=== PATIENT | male | born 1955 | race Caucasian/White ===

== ENCOUNTER 2019-01-22 21:20 | Inpatient (IN) ==
[2019-01-22 21:58] LABS: Basophils # (auto) 0.04 K/uL (0-0.2); Basophils % (auto) 0.3 %; Eosinophils # (auto) 0.08 K/uL (0-0.5); Eosinophils % (auto) 0.6 %; Hematocrit (blood only) 30.2 % (42-52); Hemoglobin 10.1 g/dL (14.0-18.0); Immature Granulocytes # (auto) 0.04 K/uL (0.00-0.02); Immature Granulocytes % (auto) 0.3 %; Lymphocytes % (auto) 18.5 %; Mean Corpuscular Hgb Conc 33.4 g/dL (32-36); Mean Corpuscular Volume 88.6 fL (80-100); Mean Platelet Volume 9.8 fL (7.4-10.4); Monocytes # (auto) 1.05 K/uL (0.11-0.59); Monocytes % (auto) 7.8 %; Neutrophils % (auto) 72.5 %; Platelet Count 360 K/uL (130-400); RDW Coefficient of Variation 13.6 % (11.5-14.5); RDW Standard Deviation 44.3 fL (36.4-46.3); Red Blood Count 3.41 M/uL (4.7-6.1); White Blood Count 13.51 K/uL (4.8-10.8)
--- NOTE | 2019-01-22 22:18 | CT Scan Report ---
ABDOMEN AND PELVIS CT WITHOUT CONTRAST CT DOSE: 2200.63 mGy.cm HISTORY: Acute left-sided flank pain L flank pain inability to urinate ro kidney stones TECHNIQUE: Multiaxial CT images of the abdomen and pelvis were performed without contrast. A dose lo wering technique was utilized adhering to the principles of ALARA. COMPARISON STUDY: None. FINDINGS: Lung bases are generally clear. No pneumatosis or pneumoperitoneum. Imaged inferior cardiac chambers appear unremarkable. Coronary arterial calcifications are noted. Limited evaluation of the solid abdominal organs without the use of IV contrast. Hepatic steatosis. N o focal hepatic mass lesion or intrahepatic biliary ductal dilation identified. Gallbladder, spleen, pancreas and adrenal glands appear unremarkable. Mild bilateral perinephric stranding. Moderate bilat eral hydroureteronephrosis. There are 3 calculi noted about the distal right ureter, largest of which measures up to 6 mm. The distalmost calculus is approximately 1.5 cm proximal to the ureterovesicula r junction. No definite renal calculi identified. 4 mm calculus of the distal left ureter at the leve l of the inferior sacrum on image 376 series 3. 6 mm calculus of the distal left ureter is noted appr oximately 1.5 cm superior to the left ureterovesicular junction. Decompressed urinary bladder. There is a tubular 1.6 cm soft tissue attenuating structure extending from the anterosuperior aspect of uri nary bladder dome to be umbilical distribution suggestive of a urachal remnant. Mild prostamegaly. Calcified plaque of the abdominal aorta without aneurysm. No adenopathy. Nonspecific mildly prominent lymph nodes adjacent to the distal esophagus. No bowel obstruction or bowel wall thickening identifi ed. Terminal ileum and appendix are within normal limits. Soft tissues are within normal limits. Dege nerative changes of the spine, pelvis and hips. IMPRESSION: 1. Moderate bilateral hydroureteronephrosis secondary to obstructing distal ureteral calculi. There a re approximately three calculi of the distal right ureter measuring up to 6 mm with two calculi of th e distal left ureter also measuring up to 6 mm. 2. 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 3. Mild prostamegaly. 4. Hepatic steatosis. 5. No bowel obstruction or bowel wall thickening. Electronically signed by: Nate Oakes M.D. 01/22/2019 10:16 PM
[2019-01-22 22:29] LABS: Alanine Aminotransferase 13 U/L (12-78); Alkaline Phosphatase 68 U/L (45-117); Aspartate Aminotransferase 13 U/L (15-37); BUN Creatinine Ratio 5.2 (10-20); Bilirubin Direct < 0.1 mg/dl (0-0.2); Bilirubin,Total 0.3 mg/dl (0.2-1); Blood Urea Nitrogen 72 mg/dl (7-18); Calcium 8.5 mg/dl (8.5-10.1); Carbon Dioxide 13 mmol/L (21-32); Chloride 106 mmol/L (98-107); Creatinine Clr Calc Pharmacy 9.2 ml/min; Est GFR (Non-African American) 3.4; Glucose 85 mg/dl (70-99); Potassium 5.6 mmol/L (3.5-5.1); Sodium 135 mmol/L (136-145); Total Protein 7.5 gm/dl (6.4-8.2)
[2019-01-22] MEDS ORDERED: CALCIUM GLUCONATE 10% 1,000 MG in SODIUM CHLORIDE 0.9% 50 ML IV STA (22:36)
[2019-01-22] MEDS ORDERED: INSULIN HUMAN REGULAR PER UNIT 10 UNITS in SYRINGE 9.9 ML IV STA (22:36)
[2019-01-22] MEDS ORDERED: DEXTROSE 50% 50 ML SYRINGE IV STA (22:36)
[2019-01-22] MEDS ORDERED: NovoLIN-R INSULIN PER UNIT CHARGE ONE (22:48)
[2019-01-22] MEDS ORDERED: IOTHALAMATE MEGLUMINE II 17.2% 250 ML VIAL ONE (22:54)
[2019-01-22] MEDS ORDERED: MIDAZOLAM HCL 1 MG/ML 2ML VIAL ONE (23:07)
[2019-01-22] MEDS ORDERED: fentaNYL citrate 100 MCG/2 ML VIAL ONE (23:07)
[2019-01-22] MEDS ORDERED: ePHEDrine sulfate 50 MG/ML AMP IV PRN (23:20)
[2019-01-22] MEDS ORDERED: ONDANSETRON INJ 2 MG/ML 2 ML VIAL IV PRN (23:20)
[2019-01-22] MEDS ORDERED: fentaNYL citrate 100 MCG/2 ML VIAL IV PRN (23:20)
[2019-01-22] MEDS ORDERED: ATROPINE SULFATE 0.1 MG/ML 10ML SYR IV PRN (23:20)
--- NOTE | 2019-01-22 23:21 | Urology Consultation ---
Date of Consultation January 22, 2019 Assessment & Plan (1) Acute kidney injury: INDY secondary to bilateral obstructing ureteral calculi Plan for emergent bilateral ureteral stenting Risks, benefits discussed Following stent placement, patient will be at risk for post obstructive diuresis and require close monitoring of his electrolytes with potential fluid replacement and electrolyte replacement as needed Given a creatinine of 13, it may take some time to return to baseline or close to baseline History of Present Illness History of Present Illness 63-year-old gentleman in relatively good health who has had no urine output for 4 days Moderate left-sided flank pain radiating to the groin No prior history of kidney stones No prior history of hematuria Never seen a urologist Upon evaluation in the emergency room, found to have an empty bladder, creatinine of 13, elevated potassium, leukocytosis of 13 CT revealed bilateral distal ureteral calculi with moderate hydronephrosisappropriate appearing renal parenchyma, completely collapsed bladder Allergies Allergy/AdvReac Type Severity Reaction Status Date / Time No Known Allergies Allergy Unverified 01/22/19 21:58 Home Medications Home Medications Medication Instructions Recorded Confirmed Type aspirin 81 mg PO QAM 01/22/19 01/22/19 History atorvastatin 40 mg PO HS 01/22/19 01/22/19 History lisinopril-hydrochlorothiazide 1 tab PO QAM 01/22/19 01/22/19 History metformin 1,000 mg PO BIDM 01/22/19 01/22/19 History metoprolol tartrate 25 mg PO BID 01/22/19 01/22/19 History Patient History Medical History Hypertension No significant past medical history Family History Other No pertinent family history in first degree relatives Social History Preferred Language: Belarusian Feels Safe at Home: Yes Smoking Status: Never smoker Review of Systems Constitutional: + fatigue and + malaise; no fever and no chills Eyes: no worsening vision Ear, Nose, Mouth, Throat: no facial pain and no pain with swallowing Respiratory: no cough and no dyspnea Cardiovascular: no chest pain and no palpitations Gastrointestinal: + abdominal pain and + belching; no nausea and no vomiting Genitourinary: + difficulty urinating and + problem reported Musculoskeletal: + back pain Integumentary: no rash and no urticaria Neurologic: no gait abnormality and no unsteadiness Psychiatric: no behavioral changes and no depression Endocrine: no fatigue Physical Exam Physical Exam: remarkably non-toxic appearing mentating appropriately AAOx3 NAD no resp distress RRR abd soft hypertensive obese mild/moderate edeam no adenopathy Results & Data Vital Signs (Past 12 Hours) Vital Signs Temp Pulse Pulse Resp BP BP Pulse Ox 01/22/19 22:59 74 24 169/75 H 98 01/22/19 21:23 36.8 C 81 16 226/105 H 97 PG Care Time/CCT Total # of Minutes Spent Total Time Spent with Patient: Total time spent is greater than 50% in coordination of care (as documented) at patient's floor/unit and/or counseling patient:
--- NOTE | 2019-01-22 23:24 | Anesthesiology Consultation ---
Date of Service January 22, 2019 Assessment & Plan (1) Encounter for pre-operative examination: Chart Review Chart Review: Acceptable Risk for Surgery and Patient NOT seen in Pre Admission Testing Consults Requested none History Surgery Operation Date: 01/22/19 23:00 Proposed Procedures p Ureteral Stent Insertion/Removal - Branden Blum MD Height/Weight Height: 6 ft 2 in Weight: 170.1 kg Allergies Allergy/AdvReac Type Severity Reaction Status Date / Time No Known Allergies Allergy Unverified 01/22/19 21:58 Medications Home Medications Medication Instructions Recorded Confirmed Last Taken aspirin 81 mg PO QAM 01/22/19 01/22/19 Unknown atorvastatin 40 mg PO HS 01/22/19 01/22/19 Unknown lisinopril-hydrochlorothiazide 1 tab PO QAM 01/22/19 01/22/19 Unknown metformin 1,000 mg PO BIDM 01/22/19 01/22/19 Unknown metoprolol tartrate 25 mg PO BID 01/22/19 01/22/19 Unknown NPO Date Last Intake of Fluids: 01/22/19 Time Last Intake of Fluids: 17:00 Date Last Intake of Solids: 01/22/19 Time Last Intake of Solids: 17:00 Past Medical History Medical History Acute kidney injury Anemia Hypertension Morbid obesity Sleep apnea Exercise / Class Metabolic Activity III < 4 Walking/Shop/Light housework Past Family History Family History Other No pertinent family history in first degree relatives Past Surgical History Surgical History H/O colonoscopy Past Anesthesia History No Hx of Anesthesia Complications and No Family Hx of Anesthesia Complications History of PONV No Hx of PONV and No Hx of Motion Sickness Social History Smoking Status: Never smoker Do You Dip or Chew Tobacco: Yes (1899) Hx Alcohol Use: Yes Hx Substance Use: No Physical Exam Vital Signs Last Vital Signs Temp 36.8 C 01/22/19 21:23 Pulse 74 01/22/19 22:59 Resp 24 01/22/19 22:59 BP 169/75 H 01/22/19 22:59 Pulse Ox 98 01/22/19 22:59 Testing Laboratory Results 01/22/19 21:47 01/22/19 21:47 Electrocardiogram ecg from 2014 showed incomplete RBBB. Cardiac Catheterization 2011 showed mild nonobstructive CAD.
[2019-01-23] MEDS ORDERED: MIDAZOLAM HCL 1 MG/ML 2ML VIAL ONE (00:11)
--- NOTE | 2019-01-23 00:30 | Operative Report ---
Post Operative Report Pre & Post Diagnosis Operation Date: 01/22/19 23:00 Pre-Op Diagnosis: Bilateral Obstructing Ureteral Stones Post-Op Diagnosis: Bilateral Obstructing Ureteral Stones Procedure Operation Date: 01/22/19 23:00 Actual Procedures p Cystoscopy and Bilateral Ureteral Stent Insertion(Bilateral) - Branden Blum MD Surgeon Ramirez Blum MD [employer] Sales Engineer none Estimated Blood Loss 0 Findings Consistent with Post-Op Diagnosis Specimens none Description of Procedure The patient was identified in the preopertive holding area, appropriate informed consents were reviewed and completed and the patient was transferred to the operative suite. Upon arrival, appropriate antibiotics and anesthesia were administered and the patient was placed in dorsal lithotomy position and prepped and draped in sterile fashion. To begin to get the past 22 [place] cystoscope with 30 degree lens, his urethra was unremarkable, no stricture disease. His prostate was modestly enlarged with lateral lobe hypertrophy and a high bladder neck. The full extent of the scope was needed to crest the bladder neck, his bladder was inspected and found to be completely empty without any mucosal abnormalities. I identified the left ureteral orifice and cannulated with a sensor wire and a 5 [place] open-ended catheter. After gentle manipulation of the wire, I had a discharge of bloody urine in the wire advanced the kidney without difficulty. I then placed a 6 [place] by 26 cm double-J ureteral stent on the left, significant curl in the left kidney. Then turned my attention to the right UO, I visualize it and cannulated with a sensor wire and a 5 [place] open-ended catheter. I again had a discharge of bloody urine after bypassing obstructing stones. After advancing the wire to the kidney I placed a 6 [place] by 26 cm double-J ureteral stent seeing a good curl in the kidney and the bladder. I decompressed the bladder and concluded the case. He was taken to the PACU in stable condition. There were no complications. I attest to the content of the Intraoperative Record and any orders documented therein. Any exceptions are noted below.
--- NOTE | 2019-01-23 00:36 | Anesthesiology Progress Note ---
Date of Service January 23, 2019 Anesthesia Post Procedure Vital Signs Vital Signs: Temp Pulse Pulse Resp BP BP Pulse Ox 01/23/19 00:30 36.0 C L 70 16 157/87 H 98 01/23/19 00:20 36.0 C L 69 16 160/87 H 98 01/22/19 22:59 74 24 169/75 H 98 01/22/19 21:23 36.8 C 81 16 226/105 H 97 Pain Intensity Flank: Pain Intensity: 6 Transfer of Care Handoff Completed per policy Notes Mental Status: alert / awake / arousable and participated in evaluation Patient Amnestic to Procedure: Yes Nausea / Vomiting: adequately controlled Pain: adequately controlled Airway Patency, RR, SpO2: stable & adequate BP & HR: stable & adequate Hydration State: stable & adequate Anesthetic Complications: no major complications apparent and Pt Satisfied with anesthetic care
--- NOTE | 2019-01-23 00:36 | History and Physical Report ---
DATE OF ADMISSION: 01/22/2019 CHIEF COMPLAINT: Back pain, unable to void. HISTORY OF PRESENT ILLNESS: This is a 63-year-old male with past medical history significant for type 2 diabetes, hyperlipidemia, testicular hypofunction, obstructive sleep apnea, on continuous positive airway pressure, morbid obesity and tobacco use disorder who presents with back pain and unable to void. The patient states since last 4 days he is having back pain and he has taken ibuprofen a couple of times a day for his back pain. In the last 3 days, he is unable to void. He reported today to his and he was brought in to the Emergency Room and was found to have a creatinine of 13 and potassium of 5.6 and anion gap metabolic acidosis and CAT scan showing bilateral obstructing kidney stones. Urology was notified by Emergency Room and the patient is going to the Operating Room now. The patient denies any headache. No blurred vision. No sore throat. No difficulty swallowing. Appetite is okay. Ambulating okay. Denies any chest pain. No shortness of breath. No cough. No fever. No chills. He is feeling nauseous, but no vomiting. He has some abdominal discomfort from being not able to void and also having some back pain. Denies any recent hematuria or burning micturition. No blood in the stools or black stools. He has some swelling in the legs, but says that is chronic. No rash seen. Currently, he is resting comfortably and hemodynamically stable. ALLERGIES: No known drug allergies. PAST MEDICAL HISTORY: As mentioned above. PAST SURGICAL HISTORY: Colonoscopy with biopsy and knee arthroscopy. MEDICATIONS: The patient is on atorvastatin 40 mg p.o. daily, lisinopril hydrochlorothiazide 20/25 mg p.o. daily, metformin 1000 mg p.o. b.i.d., Lopressor 25 mg p.o. b.i.d., nitroglycerin 0.4 mg sublingual p.r.n. and aspirin 81 mg p.o. daily. FAMILY HISTORY: Significant for father had heart disorder and coronary artery bypass graft at age of 59 and hypertension. Brother had liver cancer. SOCIAL HISTORY: and lives with his . Smokes half pack of tobacco a day. No drug use. No alcohol. REVIEW OF SYMPTOMS: As per HPI. Rest of review of systems negative. PHYSICAL EXAMINATION: GENERAL: The patient is morbidly obese, not in acute distress. VITAL SIGNS: Temperature 36.8, pulse 74, respiratory rate 24, blood pressure 169/75 and oxygen 98% on room air. HEENT: No pallor. No icterus. Pupils are equal, round and reactive to light. NECK: No JVD. No neck masses. No carotid bruits. CARDIOVASCULAR: S1, S2 heard. Regular rate and rhythm. No murmur. No gallop. RESPIRATORY SYSTEM: Normal AP diameter. No accessory muscle use. No wheezing. No crackles. ABDOMEN: Soft. Bowel sounds present. Nontender. No distention. CENTRAL NERVOUS SYSTEM: Cranial nerves II through XII are grossly intact. Nonfocal. EXTREMITIES: Pedal edema present. No erythema seen. LABORATORY DATA: WBC 13.5, hemoglobin 10.1, hematocrit 30.2 and platelets 360. Sodium 135, potassium 5.6, chloride 106, bicarbonate 13, BUN 72, creatinine 13.4, glucose 85, calcium 8.5, total bilirubin 0.3, direct bilirubin less than 0.1, AST 13, ALT 13, alkaline phosphatase [address] of abdomen and pelvis shows moderate bilateral hydronephrosis secondary to obstructing distal ureteral calculi. There are approximately three calculi of the distal right ureter measuring 6 mm with two calculi of the distal left ureteral measuring up to 6 mm, mild prostatomegaly and hyposteatosis. Electrocardiogram, normal sinus rhythm, rate of [address] changes seen. ASSESSMENT AND PLAN: This is a 63-year-old male who presents with back pain, unable to void and found to have obstructing bilateral kidney stones and acute kidney injury with metabolic acidosis. 1. Acute renal failure and chronic kidney disease stage III, baseline creatinine around 1.5, presently creatinine 13.4 mostly secondary to bilateral obstructing kidney stones. Urology was notified by Emergency Room and he is going to the Operating Room now. We will closely monitor his laboratories. Nephrology consulted. 2. Metabolic acidosis from above. We will place on bicarbonate drip D5 with 3 amps of bicarbonate at 100 mL per hour. Follow the laboratories. Appreciate Nephrology input. 3. Hyperkalemia with potassium of 5.6. No electrocardiogram changes. On bicarbonate drip. We will follow the laboratories. 4. Hypertension. We will hold lisinopril hydrochlorothiazide as the patient is having acute kidney injury. Continue metoprolol 25 mg b.i.d. with holding parameters and monitor blood pressure. 5. Hyperlipidemia. Hold statin for now. 6. Diabetes. We will hold metformin and place insulin sliding scale. Follow hemoglobin A1c levels. 7. Obstructive sleep apnea, morbid obesity, on continuous positive airway pressure at bedtime, needs counseling. 8. Elevated lipase. Mostly non specific. Will follow repeat levels in am. 9. Deep venous thrombosis prophylaxis, sequential compression devices for now. 10. Disposition: Closely monitor in tele floor. Level 1 full code. MTDD
[2019-01-23] MEDS ORDERED: ACETAMINOPHEN 325 MG TAB PO PRN (01:14)
[2019-01-23] MEDS ORDERED: ONDANSETRON INJ 2 MG/ML 2 ML VIAL IV PRN (01:14)
[2019-01-23] MEDS ORDERED: NITROGLYCERIN SL 0.4 MG/TAB TAB SL PRN (01:14)
[2019-01-23] MEDS ORDERED: GLUCAGON FOR INJ 1 MG VIAL SQ PRN (01:30)
[2019-01-23] MEDS ORDERED: GLUCOSE 10 TABS/TUBE PO PRN (01:30)
[2019-01-23] MEDS ORDERED: CARBOHYDRATES FOR HYPOGLYCEMIA PO PRN (01:30)
[2019-01-23] MEDS ORDERED: DEXTROSE 50% 50 ML SYRINGE IV PRN (01:30)
[2019-01-23] MEDS ORDERED: GLUCOSE 40% GEL 15 GM TUBE PO PRN (01:30)
--- NOTE | 2019-01-23 01:30 | Emergency Department Note ---
Entered by Francia Perry acting as a scribe for History of Present Illness General Chief complaint: Kidney Stone Stated complaint: UNABLE TO URINATE, BACK PAIN Time Seen by Provider: 01/22/19 21:27 Source: patient History of Present Illness Onset (ago): day(s) (several) Location: back (left-sided) Radiation: abdomen (left side ) Pain Consistency: + other (persistent ) Maximum Pain Intensity: 7 Current Pain Intensity: 6 Associated symptoms: + nausea/vomiting (positive nausea; negative vomiting ) and + other (positive unable to urinate; negative pain in testicles); no fever/chills The patient is a 63 year old male who presents to the Emergency Room with complaints of persistent left-sided back pain that began several days prior to arrival. The patient states that his pain radiates to the left side of his abdomen. He rates his pain at a 6/10. The patient states that he has not urinated in 3 days. He reports nausea, but denies vomiting. The patient denies pain in his testicles and fevers. He states that he has been eating and drinking normally. The patient denies any history of kidney stones. Home Medications Home Medications Medication Instructions Recorded Confirmed Type aspirin 81 mg PO QAM 01/22/19 01/22/19 History atorvastatin 40 mg PO HS 01/22/19 01/22/19 History lisinopril-hydrochlorothiazide 1 tab PO QAM 01/22/19 01/22/19 History metformin 1,000 mg PO BIDM 01/22/19 01/22/19 History metoprolol tartrate 25 mg PO BID 01/22/19 01/22/19 History Allergies Allergy/AdvReac Type Severity Reaction Status Date / Time No Known Allergies Allergy Unverified 01/22/19 21:58 Past Med/Surg History Medical History Acute kidney injury Anemia Hypertension Morbid obesity Sleep apnea Surgical History H/O colonoscopy Family History Other No pertinent family history in first degree relatives Social History Preferred Language: Irish Communication Ability: Effective Executive Search Consultant Required: Yes Beliefs That Will Affect Care: None Current Living Situation: Spouse Other Information That Helps Us Care for You: No Feels Safe at Home: Yes Safety Concerns: Feels Safe At This Time Smoking Status: Never smoker Do You Dip or Chew Tobacco: Yes ; Hx Alcohol Use: No Hx Substance Use: No Review of Systems See HPI for pertinent positives & negatives. and A total of 10 systems reviewed and were otherwise negative Physical Exam Vital Signs Vital Signs - 24 hr 01/22/19 21:23 01/22/19 22:59 Temperature 36.8 C Temperature Source Oral Sepsis Recent Fever Within 48 Hours No Sepsis Action Taken by Nursing No Action Required Pulse Rate 81 Pulse Rate [Finger] 74 Pulse Rhythm Regular Pulse Strength Normal Respiratory Rate 16 24 Respiratory Effort / Characteristics Non-Labored Respiratory Depth Normal Respiratory Pattern Regular Blood Pressure 226/105 H Blood Pressure [Right Arm] 169/75 H Blood Pressure Mean 145 Blood Pressure Mean [Right Arm] 106 Pulse Oximetry 97 98 Oxygen Delivery Method Room Air Room Air GENERAL: He is oriented to person, place, and time. He appears well-developed and well-nourished. He does not appear distressed. HENT: Exam performed. - Head: Normocephalic and atraumatic. - Right Ear: External ear normal. No mastoid tenderness. - Left Ear: External ear normal. No mastoid tenderness. - Mouth/Throat: The oropharynx is clear and moist. No trismus in the jaw. No dental abscesses or uvula swelling. No oropharyngeal exudate or tonsillar abscesses. EYES: Conjunctivae and EOM are normal. Pupils are equal, round, and reactive to light. Right eye exhibits no discharge. Left eye exhibits no discharge. No scleral icterus. NECK: Normal range of motion. Neck supple. No JVD present. No spinous process tenderness present. No carotid bruit present. No rigidity. No tracheal deviation and normal range of motion present. No Brudzinski's sign and no Kernig's sign noted. CV: Normal rate, regular rhythm, normal heart sounds and intact distal pulses. There is no peripheral edema. Palpable radial pulses bue. PULM/CHEST: Effort normal and breath sounds normal. No respiratory distress. No stridor. He has no wheezes. He has no rales. - Chest Wall: He exhibits no tenderness. ABD: Obese. Left lower quadrant pain. The abdomen is soft. Bowel sounds are normal. He has no distension. No mass is present. There is no rebound, no guarding, no Samuel's sign and no tenderness at McBurney's point. Rovsig n egative. MUSC/SKEL: Left-sided CVA tenderness. Normal range of motion. There is no peripheral edema, tenderness or deformity. LYMPH: No cervical adenopathy. NEURO: He is alert and oriented to person, place, and time. He has normal strength. No cranial nerve deficit or sensory deficit. Coordination and gait normal. GCS eye subscore is 4. GCS verbal subscore is 5. GCS motor subscore is 6. Cerebellar tests wnl. SKIN: Skin is warm and dry. He is not diaphoretic. PSYCH: He has a normal mood and affect. Behavior is normal. Judgment and thought content normal. Course 2131: Past medical records reviewed. The patient was evaluated in room C5. A complete history and physical exam was performed. 2233: Vital signs stable. Labs show leukocytosis of 13.5. Potassium 5.6. BUN 72 and creatinine of 13.4. Lipase of 1890. CT of the abdomen showed moderate bilateral hydroureteronephrosis due to bilateral obstructing ureteral calculi. 3 calculi in the distal right ureter measuring 6 mm and 2 calculi at the distal left ureter measuring 6 mm. It is thought that the patient's acute kidney injury is due to these obstructing stones. I discussed the case with Dr. Hernandez who states that he will come to evaluate the patient for a maria esther gical procedure to remove the stones. I discussed ordering IV hydration for the patient, however to Dr. Blum stated to hold off at this point as he will be taken the patient to the OR in the hydration will most likely not help the patient's acute kidney injury as he has bilateral obstructions. Patient was given calcium gluconate 1 g, 10 units of insulin IV, and 1 amp of D50 for his hyperkalemia. EKG showed no changes consistent with hyperkalemia, including no peak T waves or widening of the QRS. 2308: Dr. Hernandez is at the patient's bedside. He states that he is going to the patient to the OR. Dr. Hernandez who asks that the patient be further evaluated by medicine and he will be on consult. [facility] the patient for further evaluation. Consultations Consultation #1: I discussed the case with Dr. Blum-Urology who states that he will come to evaluate the patient for a surgical procedure to remove the stones. Time: 22:34 Administered Medications Discontinued Medications Dextrose (Dextrose 50%) 50 ml IV NOW STA Stop: 01/22/19 22:37 Last Admin: 01/22/19 23:01 Dose: 50 ml Documented by: [id number] Calcium Gluconate 1,000 mg/ (Sodium Chloride) 60 mls @ 240 mls/hr IV NOW STA Stop: 01/22/19 22:50 Last Infusion: 01/22/19 23:21 Dose: 0 mls/hr Documented by: [id number] Admin: 01/22/19 23:02 Dose: 240 mls/hr Documented by: [id number] Insulin Human Regular 10 units (/ Syringe) 9.9 mls @ 3 mls/sec IV ONE STA Stop: 01/22/19 22:37 Last Admin: 01/22/19 23:01 Dose: 3 mls/sec Documented by: [id number] Cosigned by: [id number] Insulin Human Regular (Novolin R U-100 Per Unit) Confirm Administered Dose 1 units .ROUTE .STK-MED ONE Stop: 01/22/19 22:49 Last Admin: 01/22/19 23:01 Dose: Not Given Documented by: [id number] Iothalamate Meglumine (Cysto-Conray Ii) Confirm Administered Dose 250 ml .ROUTE .STK-MED ONE Stop: 01/22/19 22:55 Last Admin: 01/23/19 00:40 Dose: Not Given Documented by: [id number] Medical Decision Making Medical Records Attestation: I reviewed the patient's medical records. Home Medications Current Medication List: was personally reviewed by in Laboratory Data Attestation: I reviewed the patient's lab results. Result diagrams: 01/22/19 21:47 01/22/19 21:47 Lab Results 01/22/19 01/22/19 Range/Units 21:47 21:47 WBC 13.51 H (4.8-10.8) K/uL RBC 3.41 L (4.7-6.1) M/uL Hgb 10.1 L (14.0-18.0) g/dL Hct 30.2 L (42-52) % MCV 88.6 (80-100) fL MCH 29.6 (25-34) pg MCHC 33.4 (32-36) g/dL RDW Std Deviation 44.3 (36.4-46.3) fL RDW Coeff of Harry 13.6 (11.5-14.5) % Plt Count 360 (130-400) K/uL MPV 9.8 (7.4-10.4) fL Immature Gran % (Auto) 0.3 % Neut % (Auto) 72.5 % Lymph % (Auto) 18.5 % [place] % (Auto) 7.8 % Eos % (Auto) 0.6 % Baso % (Auto) 0.3 % Immature Gran # (Auto) 0.04 H (0.00-0.02) K/uL Neut # (Auto) 9.80 H (1.4-6.5) K/uL Lymph # (Auto) 2.50 (1.2-3.4) K/uL [place] # (Auto) 1.05 H (0.11-0.59) K/uL Eos # (Auto) 0.08 (0-0.5) K/uL Baso # (Auto) 0.04 (0-0.2) K/uL Sodium 135 L (136-145) mmol/L Potassium 5.6 H (3.5-5.1) mmol/L Chloride 106 (98-107) mmol/L Carbon Dioxide 13 L (21-32) mmol/L Anion Gap 17.0 H (3-11) BUN 72 H (7-18) mg/dl Creatinine 13.40 H* (0.6-1.4) mg/dl Est Cr Clr Drug Dosing 9.2 ml/min Est GFR ( Amer) 4.0 Est GFR (Non-Af Amer) 3.4 BUN/Creatinine Ratio 5.2 L (10-20) Glucose 85 (70-99) mg/dl Calcium 8.5 (8.5-10.1) mg/dl Total Bilirubin 0.3 (0.2-1) mg/dl Direct Bilirubin < 0.1 (0-0.2) mg/dl AST 13 L (15-37) U/L ALT 13 (12-78) U/L Alkaline Phosphatase 68 (45-117) U/L Total Protein 7.5 (6.4-8.2) gm/dl Albumin 3.0 L (3.4-5.0) gm/dl Lipase 1890 H (73-393) U/L Imaging Data Radiologist's Impression: Radiology results as stated below per my review and the radiologist's interpretation: ABDOMEN AND PELVIS CT WITHOUT CONTRAST CT DOSE: 2200.63 mGy.cm HISTORY: Acute left-sided flank pain L flank pain inability to urinate ro kidney stones TECHNIQUE: Multiaxial CT images of the abdomen and pelvis were performed without contrast. A dose lowering technique was utilized adhering to the principles of ALARA. COMPARISON STUDY: None. FINDINGS: Lung bases are generally clear. No pneumatosis or pneumoperitoneum. Imaged inferior cardiac chambers appear unremarkable. Coronary arterial calcifications are noted. Limited evaluation of the solid abdominal organs without the use of IV contrast. Hepatic steatosis. No focal hepatic mass lesion or intrahepatic biliary ductal dilation identified. Gallbladder, spleen, pancreas and adrenal glands appear unremarkable. Mild bilateral perinephric stranding. Moderate bilateral hydroureteronephrosis. There are 3 calculi noted about the distal right ureter, largest of which measures up to 6 mm. The distalmost calculus is approximately 1.5 cm proximal to the ureterovesicular junction. No definite renal calculi identified. 4 mm calculus of the distal left ureter at the level of the inferior sacrum on image 376 series 3. 6 mm calculus of the distal left ureter is noted approximately 1.5 cm superior to the left ureterovesicular junction. Decompressed urinary bladder. There is a tubular 1.6 cm soft tissue attenuating structure extending from the anterosuperior aspect of urinary bladder dome to be umbilical distribution suggestive of a urachal remnant. Mild prostamegaly. Calcified plaque of the abdominal aorta without aneurysm. No adenopathy. Nonspecific mildly prominent lymph nodes adjacent to the distal esophagus. No bowel obstruction or bowel wall thickening identified. Terminal ileum and appendix are within normal limits. Soft tissues are within normal limits. Degenerative changes of the spine, pelvis and hips. IMPRESSION: 1. Moderate bilateral hydroureteronephrosis secondary to obstructing distal ure teral calculi. There are approximately three calculi of the distal right ureter measuring up to 6 mm with two calculi of the distal left ureter also measuring up to 6 mm. 2. 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 3. Mild prostamegaly. 4. Hepatic steatosis. 5. No bowel obstruction or bowel wall thickening. Electronically signed by: Nate Oakes M.D. 01/22/2019 10:16 PM ECG Data Attestation: I personally reviewed and interpreted this ECG as follows: Indication: abdominal pain Rate (beats per minute): 70 Rhythm: sinus rhythm Findings: + other (NE, QRS, and QTC intervals are within normal limits; baseline artifacts); no ST depression and no ST elevation Blood Pressure Blood Pressure Findings: Elevated blood pressure Blood Pressure Disposition: further management by hospitalist [facility] Narrative 2131: Past medical records reviewed. The patient was evaluated in room C5. A complete history and physical exam was performed. 2233: Vital signs stable. Labs show leukocytosis of 13.5. Potassium 5.6. BUN 72 and creatinine of 13.4. Lipase of 1890. CT of the abdomen showed moderate bilateral hydroureteronephrosis due to bilateral obstructing ureteral calculi. 3 calculi in the distal right ureter measuring 6 mm and 2 calculi at the distal left ureter measuring 6 mm. It is thought that the patient's acute kidney injury is due to these obstructing stones. I discussed the case with Dr. Hernandez who states that he will come to evaluate the patient for a surgical procedure to remove the stones. I discussed ordering IV hydration for the patient, however to Dr. Blum stated to hold off at this point as he will be taken the patient to the OR in the hydration will most likely not help the patient's acute kidney injury as he has bilateral obstructions. Patient was given calcium gluconate 1 g, 10 units of insulin IV, and 1 amp of D50 for his hyperkalemia. EKG showed no changes consistent with hyperkalemia, including no peak T waves or widening of the QRS. 2308: Dr. Hernandez is at the patient's bedside. He states that he is going to the patient to the OR. Dr. Hernandez who asks that the patient be further evaluated by medicine and he will be on consult. I discussed the case with Dr. Tai Hospitalist who accepts the patient for further evaluation. Impression & Plan Hyperkalemia, Acute kidney injury, Bilateral kidney stones, Pancreatitis Critical Care Time Critical Care Time: Yes Total Critical Care Time: 64 I have personally spent 64 minutes of critical care time in the direct management of this patient. This includes bedside care, interpretation of diagnostic studies, and testing, discussion with consultants, patient, and family members, and other required patient management activities. This 64 minutes is in excess of all separately billable procedures. Discharge Plan Visit Data *Final* Discharge Date/Time: 01/22/19 23:30 Chief Complaint: Kidney Stone Stated Complaint: UNABLE TO URINATE, BACK PAIN ED Provider: Bryan Millan Discharge Problem: Hyperkalemia, Acute kidney injury, Bilateral kidney stones, Pancreatitis Patient Disposition: Admitted As Inpatient Discharge Instructions Interventions: ED Discharge Assessment Last Done: 01/22/19 23:24 Discharge Problem: Pancreatitis Qualifiers: Chronicity: acute Pancreatitis type: unspecified pancreatitis type Acute pancreatitis complication: unspecified Qualified Code(s): K85.90 - Acute pancreatitis without necrosis or infection, unspecified The scribe's documentation has been prepared under my direction and personally reviewed by me in its entirety. I confirm that the note above accurately reflects all work, treatment, procedures, and medical decision making performed by me.
[2019-01-23] MEDS: SODIUM BICARBONATE 8.4% 150 MEQ in DEXTROSE 5% 1,000 ML IV SCH ×6 (01:48→23:54)
[2019-01-23 03:35] LABS: Appearance Urine Cloudy (Clear); Bacteria Urine Automated Negative (Negative); Bilirubin Urine Negative (Negative); Blood Urine 3+ (Negative); Color Urine Orange; Epithelial Cell Urine Auto >30 /lpf (0-5); Glucose Urine UA Negative (Negative); Ketones Urine Negative (Negative); Leukocyte Esterase Urine Trace (Negative); Nitrite Urine Negative (Negative); Protein Urine 3+ (Negative); Specific Gravity Urine 1.015 (1.000-1.030); Urobilinogen Urine Negative (Negative); WBC Urine Automated >30 /hpf (0-5); pH Urine 5.5 (4.5-7.5)
[2019-01-23 03:53] LABS: RBC Urine Automated >30 /hpf (0-4); Renal Epithelial Cells Urine 0-5 /lpf (0-5)
[2019-01-23 05:58] LABS: Basophils # (auto) 0.03 K/uL (0-0.2); Basophils % (auto) 0.2 %; Eosinophils # (auto) 0.06 K/uL (0-0.5); Eosinophils % (auto) 0.5 %; Hematocrit (blood only) 30.2 % (42-52); Immature Granulocytes # (auto) 0.05 K/uL (0.00-0.02); Immature Granulocytes % (auto) 0.4 %; Lymphocytes # (auto) 1.86 K/uL (1.2-3.4); Mean Corpuscular Hgb Conc 33.1 g/dL (32-36); Mean Corpuscular Volume 88.8 fL (80-100); Mean Platelet Volume 9.9 fL (7.4-10.4); Monocytes # (auto) 1.03 K/uL (0.11-0.59); Monocytes % (auto) 8.3 %; Neutrophils # (auto) 9.37 K/uL (1.4-6.5); Neutrophils % (auto) 75.6 %; Platelet Count 361 K/uL (130-400); RDW Coefficient of Variation 13.5 % (11.5-14.5); RDW Standard Deviation 44.2 fL (36.4-46.3)
[2019-01-23 06:40] LABS: BUN Creatinine Ratio 5.5 (10-20); Calcium 8.4 mg/dl (8.5-10.1); Creatinine Clr Calc Pharmacy 8.9 ml/min; Est GFR (African American) 3.8; Est GFR (Non-African American) 3.3; Magnesium 1.9 mg/dl (1.8-2.4); Potassium 5.5 mmol/L (3.5-5.1)
[2019-01-23] MEDS ORDERED: cefTRIAXone SODIUM 1,000 MG in DEXTROSE 5% 50 ML IV SCH (06:45)
--- NOTE | 2019-01-23 07:14 | Fluoroscopy Report ---
FL retrograde includes kub HISTORY: Ureteral stent placement. FLUOROSCOPY TIME: 6 seconds. FINDINGS: 2 fluoroscopic spot images were submitted for review. Proximal bilateral ureteral stents ar e identified appearing to position. IMPRESSION: Fluoroscopy provided for bilateral ureteral stent placement. The proximal portion of the stent were visualized and appear in good position.. Electronically signed by: Gautam Penaloza M.D. 01/23/2019 7:12 AM
[2019-01-23 07:20] LABS: Estimated Average Glucose 171 mg/dl; Hemoglobin A1C 7.6 % (4.5-5.6)
--- NOTE | 2019-01-23 07:33 | Anesthesiology Progress Note ---
Date of Service January 23, 2019 Anesthesia Post Procedure Vital Signs Vital Signs: Temp Pulse Pulse Resp BP BP Pulse Ox 01/23/19 04:09 36.6 C 65 19 132/68 95 01/23/19 01:14 01/23/19 00:57 36.8 C 76 16 165/88 H 98 01/23/19 00:37 36.0 C L 69 16 139/80 96 01/23/19 00:30 36.0 C L 70 16 157/87 H 98 01/23/19 00:20 36.0 C L 69 16 160/87 H 98 01/22/19 22:59 74 24 169/75 H 98 01/22/19 21:23 36.8 C 81 16 226/105 H 97 Pulse Ox 01/23/19 04:09 01/23/19 01:14 98 01/23/19 00:57 01/23/19 00:37 01/23/19 00:30 01/23/19 00:20 01/22/19 22:59 01/22/19 21:23 Pain Intensity Flank: Pain Intensity: 3 Notes Mental Status: alert / awake / arousable and participated in evaluation Patient Amnestic to Procedure: Yes Nausea / Vomiting: adequately controlled Pain: adequately controlled Airway Patency, RR, SpO2: stable & adequate BP & HR: stable & adequate Hydration State: stable & adequate Anesthetic Complications: Pt Satisfied with anesthetic care
--- NOTE | 2019-01-23 07:34 | Nephrology Consultation ---
Date of Consultation January 23, 2019 Assessment & Plan (1) Acute kidney injury: Presenting creatinine 13.4 on 01/22, peak to date 13.8 today and trending down on labs this afternoon. INDY from obstructive uropathy; cannot rule out ATN component or even GN from NSAIDS, diuretics, ARB -continue bicarb gtt at as aggressive a rate as he will tolerate - upped to 250 ml/hr -labs as below -strict I/O Present on Admission?: Yes (2) Hyperkalemia: K in mid 5's; he had a dose of insulin/ ca gluconate in ER at 2300; for now since he is voiding and w/ slight improvement in K, bicarb will manage medically; concomitant presumed AG metabolic acidosis; cannot r/o need for emergent HD -orders in to check ABG, lactate now > lactate elevated; pH arterial acceptable -continue cardiac monitoring -as long as not worsening/ no issues on monitor would use only bicarb gtt/ pushing uop -continue bicarb gtt at as aggressive a rate as he will tolerate > increase to 250 mL/hr -must be on renal diet/ low K when taking po -repeat bmp retimed to 1300 -- reveiwed w/ improving K, creatinine, bicarb >> cont bicarb gtt same rate Present on Admission?: Yes (3) Bilateral kidney stones: s/p 01/23 BL ureteral stents; will need metabolic w/u as OP -ordered blood cxs to r/o pyelonephritis Present on Admission?: Yes (4) Pancreatitis: in the setting of sepsis; needs aggressive IVF rate; else per primary service Present on Admission?: Yes History of Present Illness Reason for Consultation: INDY, metabolic acidosis Requesting Physician: Dr Gutierrez Attending Physician: Maria A Wilhelm MD History of Present Illness 63 y/o M admitted overnight for obstructing BL ureteral stones w/ severe INDY and metabolic acidosis whom I'm asked to see for same. His presenting creatinine was 13.4; baseline mid 1's; presenting K, bicarb 5.6 and 13 respectively. Urology placed BL ureteral stents ON. he has voided 1+ L since then. His creatinine this AM is 13.8 w/ K 5.5, bicarb 16; lipase 1650. His WBC are running 12-13K. PMH includes dm, htn, manuel on cpap, obesity, HL. He takes metformin and lisinopril /hctz, metoprolol as OP. Also for 4 days prior to admission he was taking advil for back pain. Pt was also anuric for 3-4 days prior to admission and before admission had odd tastes in his mouth w/ some N/V. Currently when I saw him this am 0740, no further N, no sob, voiding w/o issues, no gross hematuria, back pain markedly improved, abdominal pain (had been having suprapubic and LLQ abd pain prior to procedure) resolved. he is hungry and asking for breakfast. Allergies Allergy/AdvReac Type Severity Reaction Status Date / Time No Known Allergies Allergy Unverified 01/22/19 21:58 Home Medications Home Medications Medication Instructions Recorded Confirmed Type aspirin 81 mg PO QAM 01/22/19 01/22/19 History atorvastatin 40 mg PO HS 01/22/19 01/22/19 History lisinopril-hydrochlorothiazide 1 tab PO QAM 01/22/19 01/22/19 History metformin 1,000 mg PO BIDM 01/22/19 01/22/19 History metoprolol tartrate 25 mg PO BID 01/22/19 01/22/19 History Patient History Medical History Acute kidney injury Anemia Hypertension Morbid obesity Sleep apnea Surgical History H/O colonoscopy Family History Other No pertinent family history in first degree relatives Social History Preferred Language: Armenian Communication Ability: Effective 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 Beliefs That Will Affect Care: None Current Living Situation: Spouse Other Information That Helps Us Care for You: No Feels Safe at Home: Yes Safety Concerns: Feels Safe At This Time Smoking Status: Never smoker Do You Dip or Chew Tobacco: Yes ; Hx Alcohol Use: No Hx Substance Use: No Review of Systems Review of Systems: All systems reviewed & are unremarkable except as noted in HPI & below Constitutional: + fatigue and + weakness Eyes: no worsening vision Ear, Nose, Mouth, Throat: no dry mouth Endocrine: + fatigue Hematologic / Lymphatic: no easy bleeding Physical Exam Constitutional: well developed and well nourished on RA, maneuvers w/o effort for exam Eyes: EOM intact bilaterally ENMT: Ears: no external ear abnormality Nose: no external nose abnormality Mouth: + dry oral mucous membranes Neck: no nuchal rigidity Respiratory: normal respiratory effort Auscultation: + diminished lung sounds Cardiovascular: Rate/Rhythm: regular rate and regular rhythm Extremities: no edema Gastrointestinal (Abdomen): Inspection/Auscultation: normal bowel sounds Percussion/Palpation: abdomen soft; abdomen nontender Musculoskeletal: Extremities: strength 5/5 throughout Skin: no rashes, warm and dry Neurologic: graham, fluent speech, no tremor Psychiatric: Orientation: alert and oriented x 3 Eye Contact: good eye contact Speech: normal rate/rhythm/volume of speech Genitourinary: no farley Results & Data Vital Signs (Past 12 Hours) Vital Signs Temp Pulse Pulse Resp BP BP Pulse Ox 01/23/19 04:09 36.6 C 65 19 132/68 95 01/23/19 01:14 01/23/19 00:57 36.8 C 76 16 165/88 H 98 01/23/19 00:37 36.0 C L 69 16 139/80 96 01/23/19 00:30 36.0 C L 70 16 157/87 H 98 01/23/19 00:20 36.0 C L 69 16 160/87 H 98 01/22/19 22:59 74 24 169/75 H 98 01/22/19 21:23 36.8 C 81 16 226/105 H 97 Pulse Ox 01/23/19 04:09 01/23/19 01:14 98 01/23/19 00:57 01/23/19 00:37 01/23/19 00:30 01/23/19 00:20 01/22/19 22:59 01/22/19 21:23 Laboratory Results Abnormal lab results 01/22/19 01/22/19 01/23/19 Range/Units 21:47 21:47 02:55 WBC 13.51 H (4.8-10.8) K/uL RBC 3.41 L (4.7-6.1) M/uL Hgb 10.1 L (14.0-18.0) g/dL Hct 30.2 L (42-52) % Immature Gran # (Auto) 0.04 H (0.00-0.02) K/uL Neut # (Auto) 9.80 H (1.4-6.5) K/uL Nance # (Auto) 1.05 H (0.11-0.59) K/uL Sodium 135 L (136-145) mmol/L Potassium 5.6 H (3.5-5.1) mmol/L Carbon Dioxide 13 L (21-32) mmol/L Anion Gap 17.0 H (3-11) BUN 72 H (7-18) mg/dl Creatinine 13.40 H* (0.6-1.4) mg/dl BUN/Creatinine Ratio 5.2 L (10-20) POC Glucose (70-99) Hemoglobin A1c (4.5-5.6) % Calcium (8.5-10.1) mg/dl AST 13 L (15-37) U/L Albumin 3.0 L (3.4-5.0) gm/dl Lipase 1890 H (73-393) U/L Urine Appearance Cloudy A (Clear) Urine Protein 3+ H (Negative) Urine Blood 3+ H (Negative) Ur Leukocyte Esterase Trace H (Negative) Urine WBC (Auto) >30 H (0-5) /hpf Urine RBC (Auto) >30 H (0-4) /hpf U Epithel Cells (Auto) >30 H (0-5) /lpf 01/23/19 01/23/19 01/23/19 Range/Units 05:26 05:26 05:26 WBC 12.40 H (4.8-10.8) K/uL RBC 3.40 L (4.7-6.1) M/uL Hgb 10.0 L (14.0-18.0) g/dL Hct 30.2 L (42-52) % Immature Gran # (Auto) 0.05 H (0.00-0.02) K/uL Neut # (Auto) 9.37 H (1.4-6.5) K/uL Nance # (Auto) 1.03 H (0.11-0.59) K/uL Sodium (136-145) mmol/L Potassium 5.5 H (3.5-5.1) mmol/L Carbon Dioxide 16 L (21-32) mmol/L Anion Gap 16.0 H (3-11) BUN 76 H (7-18) mg/dl Creatinine 13.80 H* D (0.6-1.4) mg/dl BUN/Creatinine Ratio 5.5 L (10-20) POC Glucose (70-99) Hemoglobin A1c 7.6 H (4.5-5.6) % Calcium 8.4 L (8.5-10.1) mg/dl AST (15-37) U/L Albumin (3.4-5.0) gm/dl Lipase (73-393) U/L Urine Appearance (Clear) Urine Protein (Negative) Urine Blood (Negative) Ur Leukocyte Esterase (Negative) Urine WBC (Auto) (0-5) /hpf Urine RBC (Auto) (0-4) /hpf U Epithel Cells (Auto) (0-5) /lpf 01/23/19 01/23/19 Range/Units 05:26 07:17 WBC (4.8-10.8) K/uL RBC (4.7-6.1) M/uL Hgb (14.0-18.0) g/dL Hct (42-52) % Immature Gran # (Auto) (0.00-0.02) K/uL Neut # (Auto) (1.4-6.5) K/uL Nance # (Auto) (0.11-0.59) K/uL Sodium (136-145) mmol/L Potassium (3.5-5.1) mmol/L Carbon Dioxide (21-32) mmol/L Anion Gap (3-11) BUN (7-18) mg/dl Creatinine (0.6-1.4) mg/dl BUN/Creatinine Ratio (10-20) POC Glucose 111 H (70-99) Hemoglobin A1c (4.5-5.6) % Calcium (8.5-10.1) mg/dl AST (15-37) U/L Albumin (3.4-5.0) gm/dl Lipase 1650 H (73-393) U/L Urine Appearance (Clear) Urine Protein (Negative) Urine Blood (Negative) Ur Leukocyte Esterase (Negative) Urine WBC (Auto) (0-5) /hpf Urine RBC (Auto) (0-4) /hpf U Epithel Cells (Auto) (0-5) /lpf Diagnostic Findings CT abd/pelvis non con Lung bases are generally clear. No pneumatosis or pneumoperitoneum. Imaged inferior cardiac chambers appear unremarkable. Coronary arterial calcifications are noted. Limited evaluation of the solid abdominal organs without the use of IV contrast. Hepatic steatosis. No focal hepatic mass lesion or intrahepatic biliary ductal dilation identified. Gallbladder, spleen, pancreas and adrenal glands appear unremarkable. Mild bilateral perinephric stranding. Moderate bilateral hydroureteronephrosis. There are 3 calculi noted about the distal right ureter, largest of which measures up to 6 mm. The distalmost calculus is approximately 1.5 cm proximal to the ureterovesicular junction. No definite renal calculi trevor ntified. 4 mm calculus of the distal left ureter at the level of the inferior sacrum on image 376 series 3. 6 mm calculus of the distal left ureter is noted approximately 1.5 cm superior to the left ureterovesicular junction. Decompressed urinary bladder. There is a tubular 1.6 cm soft tissue attenuating structure extending from the anterosuperior aspect of urinary bladder dome to be umbilical distribution suggestive of a urachal remnant. Mild prostamegaly. Calcified plaque of the abdominal aorta without aneurysm. No adenopathy. Nonspecific mildly prominent lymph nodes adjacent to the distal esophagus. No bowel obstruction or bowel wall thickening identified. Terminal ileum and appendix are within normal limits. Soft tissues are within normal limits. Degenerative changes of the spine, pelvis and hips. IMPRESSION: 1. Moderate bilateral hydroureteronephrosis secondary to obstructing distal ureteral calculi. There are approximately three calculi of the distal right ureter measuring up to 6 mm with two calculi of the distal left ureter also measuring up to 6 mm. 2. 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 3. Mild prostamegaly. 4. Hepatic steatosis. 5. No bowel obstruction or bowel wall thickening. (1) Pancreatitis Acute pancreatitis complication: unspecified Chronicity: acute Pancreatitis type: unspecified pancreatitis type Qualified Code(s): K85.90 - Acute pancreatitis without necrosis or infection, unspecified
--- NOTE | 2019-01-23 08:04 | Urology Progress Note ---
Date of Service January 23, 2019 Assessment & Plan (1) Acute kidney injury: POD #1 s/p b/l ureteral stents - good UoP - Cr still very elevated - nephrology evaluating now - hope to see improved renal function over the next several days Subjective Emergent bilateral ureteral stents overnight tolerating them well hungry this AM good UoP overnight Physical Exam Physical Exam: NAD aaox3 no resp distress healthy appearing Results & Data Vital Signs (Past 12 Hours) Vital Signs Temp Pulse Pulse Resp BP BP BP 01/23/19 07:38 36.6 C 66 18 148/78 H 01/23/19 04:09 36.6 C 65 19 132/68 01/23/19 01:14 01/23/19 00:57 36.8 C 76 16 165/88 H 01/23/19 00:37 36.0 C L 69 16 139/80 01/23/19 00:30 36.0 C L 70 16 157/87 H 01/23/19 00:20 36.0 C L 69 16 160/87 H 01/22/19 22:59 74 24 169/75 H 01/22/19 21:23 36.8 C 81 16 226/105 H Pulse Ox Pulse Ox 01/23/19 07:38 98 01/23/19 04:09 95 01/23/19 01:14 98 01/23/19 00:57 98 01/23/19 00:37 96 01/23/19 00:30 98 01/23/19 00:20 98 01/22/19 22:59 98 01/22/19 21:23 97 PG Care Time/CCT Total # of Minutes Spent Total Time Spent with Patient: Total time spent is greater than 50% in coordination of care (as documented) at patient's floor/unit and/or counseling patient:
[2019-01-23 08:25] LABS: Base Excess ABG -10.5 mEq/L (-9-1.8); HCO3 ABG 14 mmol/L (19-24); Oxygen Saturation ABG 96.5 % (90-95); PCO2 ABG 27 mmHg (35-46); PO2 ABG 94 mm/Hg (80-95); pH ABG 7.33 (7.35-7.45)
[2019-01-23] MEDS: cefTRIAXone SODIUM 2,000 MG in DEXTROSE 5% 50 ML IV SCH (08:36)
[2019-01-23] MEDS: METOPROLOL TARTRATE 25 MG TAB PO SCH ×2 (08:37→21:23)
[2019-01-23 09:13] LABS: Allen Test Pos (Pos)
[2019-01-23] MEDS: INSULIN ASPART 100 UNITS/ML 3 ML PEN SC SCH ×4 (10:05→21:23)
[2019-01-23 13:54] LABS: BUN Creatinine Ratio 5.9 (10-20); Calcium 8.3 mg/dl (8.5-10.1); Creatinine Clr Calc Pharmacy 9.5 ml/min; Est GFR (African American) 4.1; Est GFR (Non-African American) 3.6
--- NOTE | 2019-01-23 15:20 | Hospitalist Progress Note ---
Date of Service January 23, 2019 Assessment & Plan (1) Acute kidney injury: Admitted back pain with radiation to groins for the last 4 days Noted to have INDY on admission secondary to obstructive uropathy Nephrology has been consulted and appreciate their input and recommendation Has been getting intravenous fluid We monitor PRP and electrolytes Present on Admission?: Yes (2) Obstructive uropathy: Bilateral kidney stones and ureteral stones causing obstructive uropathy Appreciate urology input and recommendation Status post bilateral pediatrics stent placement (3) Bilateral kidney stones: Has bilateral kidney stones and bilateral pediatric stone Presented with obstructive uropathy Status post stent placement in both ureters on 01/22 Has been passing urine normally Advised to drink more water Present on Admission?: Yes (4) Hyperkalemia: Secondary to acute kidney injury Has been getting bicarbonate drip We will monitor electrolytes and renal function (5) Pancreatitis: Denies any significant abdominal pain IV fluid and pain medications Diet started Obstructive sleep apnea Continue with CPAP as an outpatient DVT prophylaxis SCDs and will change to heparin from today CODE STATUS Full Discussed with the daughter and the Subjective 01/23 Patient was seen and examined in telemetry unit He is a 63-year-old morbidly obese male with significant past medical history of type 2 diabetes, sleep apnea on CPAP, hyperlipidemia and tobacco use disorder was admitted yesterday with back pain for about 4 days duration and noted to have bilateral pediatric and kidney stones with obstructive uropathy Is a status post bilateral ureteral stent placement by urologist Denies any pain and passing urine normally Review of Systems Review of Systems: All systems reviewed and are unremarkable except as mentioned below Gastrointestinal: no abdominal pain Genitourinary: no dysuria and no difficulty urinating Physical Exam Physical Exam: Lying in bed comfortably Constitutional: well developed, well nourished and + morbidly obese; no acute distress and not ill appearing Eyes: PERRL, conjunctivae normal, anicteric sclerae ENMT: external ear and nose normal, oropharynx normal Neck: trachea midline, no thyromegaly Respiratory: normal respiratory effort Auscultation: lungs clear to auscultation bilaterally and + diminished lung sounds Cardiovascular: Rate/Rhythm: regular rate and regular rhythm Heart Sounds: no murmur Gastrointestinal (Abdomen): Inspection/Auscultation: abdomen normal to inspection and + abdomen distended Percussion/Palpation: abdomen soft; abdomen nontender No tenderness in the renal angles Neurologic: Alert, awake and oriented x3 Lymphatic: no cervical or axillary lymphadenopathy Results & Data Vital Signs (Past 12 Hours) Vital Signs Temp Pulse Pulse Resp BP BP Pulse Ox 01/23/19 11:35 36.5 C 69 22 159/80 H 97 01/23/19 08:00 69 01/23/19 07:38 36.6 C 66 18 148/78 H 98 01/23/19 04:09 36.6 C 65 19 132/68 95 Laboratory Results Short CBC 01/22/19 01/23/19 Range/Units 21:47 05:26 WBC 13.51 H 12.40 H (4.8-10.8) K/uL Hgb 10.1 L 10.0 L (14.0-18.0) g/dL Hct 30.2 L 30.2 L (42-52) % Plt Count 360 361 (130-400) K/uL BMP 01/22/19 01/23/19 01/23/19 21:47 05:26 12:54 Sodium 135 L 137 135 L Potassium 5.6 H 5.5 H 5.0 Chloride 106 105 102 Carbon Dioxide 13 L 16 L 18 L BUN 72 H 76 H 76 H Creatinine 13.40 H* 13.80 H* D 13.00 H* D Glucose 85 94 210 H Calcium 8.5 8.4 L 8.3 L Liver Function 01/22/19 Range/Units 21:47 Total Bilirubin 0.3 (0.2-1) mg/dl Direct Bilirubin < 0.1 (0-0.2) mg/dl AST 13 L (15-37) U/L ALT 13 (12-78) U/L Alkaline Phosphatase 68 (45-117) U/L Albumin 3.0 L (3.4-5.0) gm/dl Urine 01/23/19 Range/Units 02:55 Urine Color Walsh Urine Appearance Cloudy A (Clear) Urine pH 5.5 (4.5-7.5) Ur Specific Bruce 1.015 (1.000-1.030) Urine Protein 3+ H (Negative) Urine Glucose (UA) Negative (Negative) Medications Administered Current Inpatient Medications Acetaminophen (Tylenol) 650 mg PO Q4H PRN PRN Reason: Pain or Fever Stop: 02/22/19 01:13 Dextrose (Dextrose 50%) 25 - 50 ml IV UD PRN; Protocol PRN Reason: Hypoglycemia Protocol Stop: 02/22/19 01:29 Glucagon (Glucagen) 1 mg SQ UD PRN; Protocol PRN Reason: Hypoglycemia Protocol Stop: 02/22/19 01:29 Glucose (Glucose 40%) 15 - 30 gm PO UD PRN; Protocol PRN Reason: Hypoglycemia Protocol Stop: 02/22/19 01:29 Glucose (Dex4 Glucose) 4 - 8 tabs PO UD PRN; Protocol PRN Reason: Hypoglycemia Protocol Stop: 02/22/19 01:29 Sodium Bicarbonate 150 meq/ (Dextrose) 1,150 mls @ 250 mls/hr IV .Q4H36M [facility] Stop: 02/22/19 01:13 Last Admin: 01/23/19 15:07 Dose: 250 mls/hr Documented by: Ceftriaxone Sodium 2,000 mg/ (Dextrose) 70 mls @ 140 mls/hr IV Q24H [facility] Stop: 02/02/19 06:59 Last Infusion: 01/23/19 09:06 Dose: Infused Documented by: Insulin Aspart (Novolog Flexpen) 0 units SC ACHS [facility] Stop: 02/22/19 07:29 Last Admin: 01/23/19 14:19 Dose: Not Given Documented by: Metoprolol Tartrate (Lopressor) 25 mg PO BID [facility] Stop: 02/22/19 08:59 Last Admin: 01/23/19 08:37 Dose: 25 mg Documented by: Miscellaneous (Carbohydrates For Hypoglycemia) 15 - 30 gm PO UD PRN PRN Reason: Hypoglycemia Treatment Stop: 02/22/19 01:29 Nitroglycerin (Nitrostat) 0.4 mg SL UD PRN PRN Reason: Chest Pain Stop: 02/22/19 01:13 Ondansetron HCl (Zofran) 4 mg IV Q6H PRN PRN Reason: Nausea Stop: 02/22/19 01:13 (1) Pancreatitis Acute pancreatitis complication: unspecified Chronicity: acute Pancreatitis type: unspecified pancreatitis type Qualified Code(s): K85.90 - Acute pancreatitis without necrosis or infection, unspecified
[2019-01-24 07:44] LABS: Basophils # (auto) 0.03 K/uL (0-0.2); Basophils % (auto) 0.3 %; Eosinophils # (auto) 0.15 K/uL (0-0.5); Eosinophils % (auto) 1.3 %; Hemoglobin 10.2 g/dL (14.0-18.0); Immature Granulocytes # (auto) 0.02 K/uL (0.00-0.02); Immature Granulocytes % (auto) 0.2 %; Lymphocytes # (auto) 1.74 K/uL (1.2-3.4); Lymphocytes % (auto) 15.1 %; Mean Corpuscular Hgb Conc 35.2 g/dL (32-36); Mean Corpuscular Volume 84.8 fL (80-100); Mean Platelet Volume 9.6 fL (7.4-10.4); Monocytes # (auto) 0.92 K/uL (0.11-0.59); Neutrophils # (auto) 8.68 K/uL (1.4-6.5); Neutrophils % (auto) 75.1 %; Platelet Count 368 K/uL (130-400); RDW Coefficient of Variation 13.4 % (11.5-14.5); Red Blood Count 3.42 M/uL (4.7-6.1); White Blood Count 11.54 K/uL (4.8-10.8)
[2019-01-24] MEDS: cefTRIAXone SODIUM 2,000 MG in DEXTROSE 5% 50 ML IV SCH (08:20)
[2019-01-24] MEDS: METOPROLOL TARTRATE 25 MG TAB PO SCH ×2 (08:22→20:03)
[2019-01-24] MEDS: INSULIN ASPART 100 UNITS/ML 3 ML PEN SC SCH ×4 (08:23→20:46)
[2019-01-24 08:30] LABS: BUN Creatinine Ratio 6.5 (10-20); Calcium 7.8 mg/dl (8.5-10.1); Creatinine Clr Calc Pharmacy 12.1 ml/min; Est GFR (African American) 5.5; Est GFR (Non-African American) 4.8; Magnesium 1.6 mg/dl (1.8-2.4); Phosphorus 6.4 mg/dl (2.5-4.9); Potassium 3.7 mmol/L (3.5-5.1)
[2019-01-24] MEDS: SODIUM BICARBONATE 8.4% 150 MEQ in DEXTROSE 5% 1,000 ML IV SCH ×2 (09:07→18:20)
--- NOTE | 2019-01-24 14:07 | Hospitalist Progress Note ---
Date of Service January 24, 2019 Assessment & Plan (1) Acute kidney injury: Admitted back pain with radiation to groins for the last 4 days Noted to have INDY on admission secondary to obstructive uropathy Nephrology has been consulted and appreciate their input and recommendation Has been getting intravenous fluid Creatinine is down to 10.2 from 13 and electrolytes are unremarkable We will continue current fluid intravenously and advised to drink more water (2) Obstructive uropathy: Bilateral kidney stones and ureteral stones causing obstructive uropathy Appreciate urology input and recommendation Status post bilateral ureteric stent placement, POD #2 (3) Bilateral kidney stones: Has bilateral kidney stones and bilateral pediatric stone Presented with obstructive uropathy Status post stent placement in both ureters on 01/22 Has been passing urine normally Advised to drink more water (4) Hyperkalemia: Secondary to acute kidney injury Has been getting bicarbonate drip We will monitor electrolytes and renal function We will add oral magnesium- (5) Pancreatitis: Denies any significant abdominal pain IV fluid and pain medications Diet started Obstructive sleep apnea Continue with CPAP as an outpatient DVT prophylaxis SCDs and will change to heparin from today CODE STATUS Full Discussed with the daughter and the Subjective 01/23 Patient was seen and examined in telemetry unit He is a 63-year-old morbidly obese male with significant past medical history of type 2 diabetes, sleep apnea on CPAP, hyperlipidemia and tobacco use disorder was admitted yesterday with back pain for about 4 days duration and noted to have bilateral pediatric and kidney stones with obstructive uropathy Is a status post bilateral ureteral stent placement by urologist Denies any pain and passing urine normally 01/24 Patient is seen and examined in telemetry unit He has been lying in bed comfortably without any symptoms Denies any more pain and passing lots of urine Review of Systems Review of Systems: All systems reviewed and are unremarkable except as noted below Musculoskeletal: Denies any back pain Physical Exam Physical Exam: Lying in bed comfortably Constitutional: well developed, well nourished and + morbidly obese; no acute distress and not ill appearing Eyes: PERRL, conjunctivae normal, anicteric sclerae ENMT: external ear and nose normal, oropharynx normal Neck: trachea midline, no thyromegaly Respiratory: normal respiratory effort Auscultation: lungs clear to auscultation bilaterally and + diminished lung sounds Cardiovascular: Rate/Rhythm: regular rate and regular rhythm Heart Sounds: no murmur Gastrointestinal (Abdomen): Inspection/Auscultation: abdomen normal to inspection and + abdomen distended Percussion/Palpation: abdomen soft; abdomen nontender Neurologic: PERRL, EOMI, accommodation nl, no face palsy, no dysarthria Psychiatric: A+Ox3, euthymic affect Lymphatic: no cervical or axillary lymphadenopathy Results & Data Vital Signs (Past 12 Hours) Vital Signs Temp Pulse Pulse Resp BP BP Pulse Ox 01/24/19 11:40 36.9 C 62 22 124/75 96 01/24/19 08:00 62 01/24/19 07:43 36.9 C 66 16 141/72 H 95 01/24/19 03:00 36.3 C L 72 18 95/60 L 98 Laboratory Results Short CBC 01/24/19 Range/Units 07:23 WBC 11.54 H (4.8-10.8) K/uL Hgb 10.2 L (14.0-18.0) g/dL Hct 29.0 L (42-52) % Plt Count 368 (130-400) K/uL BMP 01/24/19 07:23 Sodium 139 Potassium 3.7 D Chloride 100 Carbon Dioxide 28 BUN 67 H Creatinine 10.20 H* D Glucose 146 H Calcium 7.8 L Medications Administered Current Inpatient Medications Acetaminophen (Tylenol) 650 mg PO Q4H PRN PRN Reason: Pain or Fever Stop: 02/22/19 01:13 Dextrose (Dextrose 50%) 25 - 50 ml IV UD PRN; Protocol PRN Reason: Hypoglycemia Protocol Stop: 02/22/19 01:29 Glucagon (Glucagen) 1 mg SQ UD PRN; Protocol PRN Reason: Hypoglycemia Protocol Stop: 02/22/19 01:29 Glucose (Glucose 40%) 15 - 30 gm PO UD PRN; Protocol PRN Reason: Hypoglycemia Protocol Stop: 02/22/19 01:29 Glucose (Dex4 Glucose) 4 - 8 tabs PO UD PRN; Protocol PRN Reason: Hypoglycemia Protocol Stop: 02/22/19 01:29 Ceftriaxone Sodium 2,000 mg/ (Dextrose) 70 mls @ 140 mls/hr IV Q24H [facility] Stop: 02/02/19 06:59 Last Infusion: 01/24/19 08:50 Dose: Infused Documented by: Sodium Bicarbonate 150 meq/ (Dextrose) 1,150 mls @ 125 mls/hr IV .Q9H12M [facility] Stop: 02/22/19 23:51 Last Admin: 01/24/19 09:07 Dose: 125 mls/hr Documented by: Insulin Aspart (Novolog Flexpen) 0 units SC ACHS [facility] Stop: 02/22/19 07:29 Last Admin: 01/24/19 13:46 Dose: Not Given Documented by: Metoprolol Tartrate (Lopressor) 25 mg PO BID [facility] Stop: 02/22/19 08:59 Last Admin: 01/24/19 08:22 Dose: 25 mg Documented by: Miscellaneous (Carbohydrates For Hypoglycemia) 15 - 30 gm PO UD PRN PRN Reason: Hypoglycemia Treatment Stop: 02/22/19 01:29 Nitroglycerin (Nitrostat) 0.4 mg SL UD PRN PRN Reason: Chest Pain Stop: 02/22/19 01:13 Ondansetron HCl (Zofran) 4 mg IV Q6H PRN PRN Reason: Nausea Stop: 02/22/19 01:13 (1) Pancreatitis Acute pancreatitis complication: unspecified Chronicity: acute Pancreatitis type: unspecified pancreatitis type Qualified Code(s): K85.90 - Acute pancreatitis without necrosis or infection, unspecified
[2019-01-24] MEDS: MAGNESIUM OXIDE 400 MG TAB PO SCH (20:04)
[2019-01-25] MEDS: SODIUM BICARBONATE 8.4% 150 MEQ in DEXTROSE 5% 1,000 ML IV SCH (03:34)
[2019-01-25] MEDS: METOPROLOL TARTRATE 25 MG TAB PO SCH ×2 (08:32→20:29)
[2019-01-25] MEDS: MAGNESIUM OXIDE 400 MG TAB PO SCH ×2 (08:32→20:30)
[2019-01-25] MEDS: cefTRIAXone SODIUM 2,000 MG in DEXTROSE 5% 50 ML IV SCH (08:32)
[2019-01-25] MEDS: INSULIN ASPART 100 UNITS/ML 3 ML PEN SC SCH ×4 (08:33→20:39)
[2019-01-25 08:43] LABS: BUN Creatinine Ratio 7.6 (10-20); Creatinine Clr Calc Pharmacy 19.1 ml/min; Est GFR (African American) 9.7; Est GFR (Non-African American) 8.4; Magnesium 1.4 mg/dl (1.8-2.4); Phosphorus 5.2 mg/dl (2.5-4.9); Potassium 3.1 mmol/L (3.5-5.1)
[2019-01-25] MEDS: MAGNESIUM SULFATE / D5W 1 GM/100 ML BAG IV SCH ×2 (10:30→11:22)
[2019-01-25] MEDS: POTASSIUM CHLORIDE / WTR 10 MEQ/100 ML PLCT IV SCH ×4 (10:30→13:41)
--- NOTE | 2019-01-25 13:36 | Hospitalist Progress Note ---
Date of Service January 25, 2019 Assessment & Plan (1) Acute kidney injury: Admitted back pain with radiation to groins for the last 4 days Noted to have INDY on admission secondary to obstructive uropathy Nephrology has been consulted and appreciate their input and recommendation Has been getting intravenous fluid Creatinine is down to 10.2 from 13 and electrolytes are unremarkable We will continue current fluid intravenously and advised to drink more water Creatinine is down to 6.0 and potassium is 3.1 His bicarb level is going high and CO2 is 36 today We will discontinue bicarb drip Electrolyte supplement Advised to drink more fluid (2) Obstructive uropathy: Bilateral kidney stones and ureteral stones causing obstructive uropathy Appreciate urology input and recommendation Status post bilateral ureteric stent placement, POD #3 Kidney function has been improving (3) Bilateral kidney stones: Has bilateral kidney stones and bilateral pediatric stone Presented with obstructive uropathy Status post stent placement in both ureters on 01/22 Has been passing urine normally Advised to drink more water (4) Hyperkalemia: Secondary to acute kidney injury Has been getting bicarbonate drip We will monitor electrolytes and renal function We will add oral magnesium- Now has hypokalemia due to diuretic phase of acute renal failure We will monitor electrolytes and supplement accordingly (5) Pancreatitis: Denies any significant abdominal pain IV fluid and pain medications Diet started Obstructive sleep apnea Continue with CPAP as an outpatient DVT prophylaxis SCDs and will change to heparin from today CODE STATUS Full Discussed with the daughter and the Subjective 01/23 Patient was seen and examined in telemetry unit He is a 63-year-old morbidly obese male with significant past medical history of type 2 diabetes, sleep apnea on CPAP, hyperlipidemia and tobacco use disorder was admitted yesterday with back pain for about 4 days duration and noted to have bilateral pediatric and kidney stones with obstructive uropathy Is a status post bilateral ureteral stent placement by urologist Denies any pain and passing urine normally 01/24 Patient is seen and examined in telemetry unit He has been lying in bed comfortably without any symptoms Denies any more pain and passing lots of urine Review of Systems Review of Systems: All systems reviewed and are unremarkable except as noted below Musculoskeletal: Denies any back pain Physical Exam Constitutional: well developed, well nourished and + morbidly obese; no acute distress and not ill appearing Eyes: PERRL, conjunctivae normal, anicteric sclerae ENMT: external ear and nose normal, oropharynx normal Neck: trachea midline, no thyromegaly Respiratory: normal respiratory effort Auscultation: lungs clear to auscultation bilaterally and + diminished lung sounds Cardiovascular: Rate/Rhythm: regular rate and regular rhythm Heart Sounds: no murmur Gastrointestinal (Abdomen): Inspection/Auscultation: abdomen normal to inspection and + abdomen distended Percussion/Palpation: abdomen soft; abdomen nontender Neurologic: PERRL, EOMI, accommodation nl, no face palsy, no dysarthria Psychiatric: A+Ox3, euthymic affect Lymphatic: no cervical or axillary lymphadenopathy Results & Data Vital Signs (Past 12 Hours) Vital Signs Temp Pulse Resp BP Pulse Ox 01/25/19 11:42 36.8 C 60 20 143/86 H 97 01/25/19 07:48 36.8 C 63 22 110/64 94 01/25/19 04:00 36.6 C 63 17 116/66 94 Laboratory Results BMP 01/25/19 07:46 Sodium 140 Potassium 3.1 L D Chloride 97 L Carbon Dioxide 36 H BUN 49 H Creatinine 6.41 H* D Glucose 132 H Calcium 7.0 L Medications Administered Current Inpatient Medications Acetaminophen (Tylenol) 650 mg PO Q4H PRN PRN Reason: Pain or Fever Stop: 02/22/19 01:13 Dextrose (Dextrose 50%) 25 - 50 ml IV UD PRN; Protocol PRN Reason: Hypoglycemia Protocol Stop: 02/22/19 01:29 Glucagon (Glucagen) 1 mg SQ UD PRN; Protocol PRN Reason: Hypoglycemia Protocol Stop: 02/22/19 01:29 Glucose (Glucose 40%) 15 - 30 gm PO UD PRN; Protocol PRN Reason: Hypoglycemia Protocol Stop: 02/22/19 01:29 Glucose (Dex4 Glucose) 4 - 8 tabs PO UD PRN; Protocol PRN Reason: Hypoglycemia Protocol Stop: 02/22/19 01:29 Ceftriaxone Sodium 2,000 mg/ (Dextrose) 70 mls @ 140 mls/hr IV Q24H KANDACE Stop: 02/02/19 06:59 Last Infusion: 01/25/19 09:32 Dose: Infused Documented by: Insulin Aspart (Novolog Flexpen) 0 units SC ACHS KANDACE Stop: 02/22/19 07:29 Last Admin: 01/25/19 11:40 Dose: Not Given Documented by: Magnesium Oxide (Mag-Ox) 400 mg PO BID [facility] Stop: 02/23/19 20:59 Last Admin: 01/25/19 08:32 Dose: 400 mg Documented by: Metoprolol Tartrate (Lopressor) 25 mg PO BID [facility] Stop: 02/22/19 08:59 Last Admin: 01/25/19 08:32 Dose: 25 mg Documented by: Miscellaneous (Carbohydrates For Hypoglycemia) 15 - 30 gm PO UD PRN PRN Reason: Hypoglycemia Treatment Stop: 02/22/19 01:29 Nitroglycerin (Nitrostat) 0.4 mg SL UD PRN PRN Reason: Chest Pain Stop: 02/22/19 01:13 Ondansetron HCl (Zofran) 4 mg IV Q6H PRN PRN Reason: Nausea Stop: 02/22/19 01:13 (1) Pancreatitis Acute pancreatitis complication: unspecified Chronicity: acute Pancreatitis type: unspecified pancreatitis type Qualified Code(s): K85.90 - Acute pancreatitis without necrosis or infection, unspecified
--- NOTE | 2019-01-25 14:57 | Progress Note ---
DATE: 01/25/2019 SUBJECTIVE: No new issues. Hematuria has subsided, but still has very slightly pinkish urine. Urine output is very good. Vital signs are stable. He is eating and drinking normally and renal labs are getting better. PHYSICAL EXAMINATION: VITAL SIGNS: Blood pressure is 143/86, pulse rate 60, temperature 36.8, 97% on room air. HEENT: Mucous membrane is moist. NECK: Supple. No jugular venous distention. CHEST: Bilateral clear to auscultation. CARDIOVASCULAR: S1, S2, regular. ABDOMEN: Soft, nontender. EXTREMITIES: Shows no edema. LABORATORY TESTS: From this morning shows improving labs with a BUN of 49, creatinine 6.4. Sodium 140, potassium 3.1, chloride 97, bicarbonate 36, calcium 7.0, phosphorus 5.2, magnesium is 1.4. ASSESSMENT AND PLAN: A 63-year-old male admitted for obstructing bilateral ureteral stone with severe acute renal failure and metabolic acidosis. 1. Acute renal failure is rapidly getting better. I expect renal function to be essentially normal within the next 2 days. He is having very good urine output. No further workup is needed. 2. Acid base and electrolyte issue. Initially he had hyperkalemia in the setting of severe acute renal failure with obstruction. At this time; however, he is in the diuretic phase of the renal failure. Potassium and magnesium is slightly low and is being replaced. I would also stop the bicarbonate drip at this time given bicarb is now 36. He is eating and drinking normally and I do not really think he needs to be on any type of IV fluid. 3. Bilateral ureteric stone. He has stent bilaterally and he will have further procedure as an outpatient.
[2019-01-26 07:56] LABS: Basophils # (auto) 0.04 K/uL (0-0.2); Basophils % (auto) 0.3 %; Eosinophils # (auto) 0.25 K/uL (0-0.5); Hematocrit (blood only) 28.6 % (42-52); Hemoglobin 9.7 g/dL (14.0-18.0); Immature Granulocytes # (auto) 0.02 K/uL (0.00-0.02); Immature Granulocytes % (auto) 0.2 %; Lymphocytes # (auto) 2.21 K/uL (1.2-3.4); Lymphocytes % (auto) 17.6 %; Mean Corpuscular Hgb Conc 33.9 g/dL (32-36); Mean Corpuscular Volume 88.3 fL (80-100); Mean Platelet Volume 9.6 fL (7.4-10.4); Monocytes # (auto) 0.97 K/uL (0.11-0.59); Monocytes % (auto) 7.7 %; Neutrophils # (auto) 9.05 K/uL (1.4-6.5); Neutrophils % (auto) 72.2 %; Platelet Count 373 K/uL (130-400); RDW Coefficient of Variation 13.4 % (11.5-14.5); RDW Standard Deviation 43.6 fL (36.4-46.3); Red Blood Count 3.24 M/uL (4.7-6.1); White Blood Count 12.54 K/uL (4.8-10.8)
[2019-01-26] MEDS: INSULIN ASPART 100 UNITS/ML 3 ML PEN SC SCH ×2 (08:25→12:54)
[2019-01-26] MEDS: METOPROLOL TARTRATE 25 MG TAB PO SCH (08:25)
[2019-01-26] MEDS: MAGNESIUM OXIDE 400 MG TAB PO SCH (08:25)
[2019-01-26] MEDS: cefTRIAXone SODIUM 2,000 MG in DEXTROSE 5% 50 ML IV SCH (08:29)
[2019-01-26 08:34] LABS: BUN Creatinine Ratio 9.7 (10-20); Calcium 7.2 mg/dl (8.5-10.1); Est GFR (African American) 19.2; Est GFR (Non-African American) 16.6; Magnesium 1.6 mg/dl (1.8-2.4); Phosphorus 4.4 mg/dl (2.5-4.9); Potassium 3.3 mmol/L (3.5-5.1)
[2019-01-26] MEDS ORDERED: POTASSIUM CHLORIDE 20 MEQ TABCR PO STA (08:39)
--- NOTE | 2019-01-26 09:40 | Urology Progress Note ---
Date of Service January 26, 2019 Assessment & Plan (1) Bilateral kidney stones: 63yo M POD #4 s/p emergent bilateral ureteral stent placement for severe INDY related to bilateral obstructing stones. Pt continues to progress as expected. Tolerating stents without major difficulty. We discussed plan of care moving forward. We will arrange for outpatient f/u with Dr. Blum in 2-3 weeks once he has recovered, with repeat CT scan to assess stone burden. Thank you for allowing us to participate in the acute care of Mr. Lyon. Please reconsult with additional questions, concerns or changes in patient status. Subjective 63yo M POD #4 s/p emergent bilateral ureteral stent placement for severe INDY related to bilateral obstructing stones. Pt doing well today, sitting up in bed. He is tolerating regular diet, denies n/v. He denies cp/sob/f/c. He denies dysuria, suprapubic pain. he does acknowledge urinary frequency and urgency, as anticipated. He also relates that his backpain is much improved, and hematuria has cleared up. Good UoP. No new issues or concerns today. Labs reviewed- Cr continues to normalize as expected. Review of Systems Review of Systems: All systems reviewed & are unremarkable except as noted in HPI & below Physical Exam Constitutional: no acute distress and not ill appearing Eyes: no nystagmus ENMT: Ears: no hearing impairment Neck: trachea midline Respiratory: no respiratory distress and no cough Cardiovascular: Vessels: no JVD Chest (Breasts): Chest: normal inspection of chest Gastrointestinal (Abdomen): Inspection/Auscultation: abdomen not distended and no abdominal edema Percussion/Palpation: abdomen soft; abdomen nontender Musculoskeletal: Head/Neck/Chest: normocephalic and head atraumatic Skin: no rashes, warm and dry Neurologic: awake; not confused and not obtunded Psychiatric: Orientation: alert and oriented x 3 Eye Contact: good eye contact Affect: no depressed affect Genitourinary: bladder normal to inspection; no CVA tenderness Lymphatic: no lymphadenopathy and no lymphedema Results & Data Vital Signs (Past 12 Hours) Vital Signs Temp Pulse Pulse Resp BP BP Pulse Ox 01/26/19 07:51 37.1 C 68 17 108/62 93 01/26/19 04:25 37.4 C 67 18 117/67 94 01/25/19 23:14 37.1 C 62 18 153/70 H 96 01/25/19 22:45 65 18 94
--- NOTE | 2019-01-26 10:39 | Nephrology Progress Note ---
Date of Service January 26, 2019 Assessment & Plan (1) Acute kidney injury: Presenting creatinine 13.4 on 01/22, and trending down to 3.6. INDY from obstructive uropathy; cannot rule out ATN component or even GN from NSAIDS, diuretics, ARB -continue to monitor BMP, if discharged can check BMP on saturday to be reviewed by PCP. He will need nephrology f/u in 1-2 weeks (2) Bilateral kidney stones: s/p 01/23 BL ureteral stents; will need metabolic w/u as OP including urorisk profile (3) Pancreatitis: Improved with fluids (4) Hypokalemia: Due to Post obstructive diuresis. Given 40meq kcl today. Can be discharged on 20meq daily until outpt f/u. He needs to eat foods high in K like bananas and orange juice Subjective Patient seen in f/u for INDY and obstructive stones s/p stents. He feels better. No hematuria or dysuria. Cr down to 3.6. Urine output increasing Review of Systems Review of Systems: All systems reviewed & are unremarkable except as noted in HPI & below Physical Exam Physical Exam: General exam: Appears comfortable, no acute distress HEENT: Pupils are equal and reactive to light Neck: No JVD, neck is supple trachea is midline Respiratory system: Clear breath sounds bilaterally. Gastrointestinal: Abdomen is soft, non distended, non tender, bowel sounds are present CVS: Regular rate and rhythm. No murmurs, rubs or gallops Musculoskeletal: No joint or muscle tenderness Extremities: Non tender, no edema, peripheral pulses are present Neuro: Oriented, no tremors, no focal neurological deficits Skin: No rashes Results & Data Vital Signs (Past 12 Hours) Vital Signs Temp Pulse Pulse Resp BP BP Pulse Ox 01/26/19 08:00 60 01/26/19 07:51 37.1 C 68 17 108/62 93 01/26/19 04:25 37.4 C 67 18 117/67 94 01/25/19 23:14 37.1 C 62 18 153/70 H 96 01/25/19 22:45 65 18 94 Laboratory Results Laboratory Results - last 24 hr 01/25/19 01/25/19 01/25/19 11:22 16:35 20:36 WBC RBC Hgb Hct MCV MCH MCHC RDW Std Deviation RDW Coeff of Harry Plt Count MPV Immature Gran % (Auto) Neut % (Auto) Lymph % (Auto) Barton % (Auto) Eos % (Auto) Baso % (Auto) Immature Gran # (Auto) Neut # (Auto) Lymph # (Auto) Barton # (Auto) Eos # (Auto) Baso # (Auto) Sodium Potassium Chloride Carbon Dioxide Anion Gap BUN Creatinine Est Cr Clr Drug Dosing Est GFR ( Amer) Est GFR (Non-Af Amer) BUN/Creatinine Ratio Glucose POC Glucose 138 H 119 H 142 H Calcium Phosphorus Magnesium 01/26/19 01/26/19 01/26/19 07:16 07:26 07:26 WBC 12.54 H RBC 3.24 L Hgb 9.7 L Hct 28.6 L MCV 88.3 MCH 29.9 MCHC 33.9 RDW Std Deviation 43.6 RDW Coeff of Harry 13.4 Plt Count 373 MPV 9.6 Immature Gran % (Auto) 0.2 Neut % (Auto) 72.2 Lymph % (Auto) 17.6 Barton % (Auto) 7.7 Eos % (Auto) 2.0 Baso % (Auto) 0.3 Immature Gran # (Auto) 0.02 Neut # (Auto) 9.05 H Lymph # (Auto) 2.21 Barton # (Auto) 0.97 H Eos # (Auto) 0.25 Baso # (Auto) 0.04 Sodium 139 Potassium 3.3 L Chloride 100 Carbon Dioxide 30 Anion Gap 9.0 BUN 35 H Creatinine 3.65 H D Est Cr Clr Drug Dosing 33.0 Est GFR ( Amer) 19.2 Est GFR (Non-Af Amer) 16.6 BUN/Creatinine Ratio 9.7 L Glucose 119 H POC Glucose 123 H Calcium 7.2 L Phosphorus 4.4 Magnesium 1.6 L (1) Pancreatitis Acute pancreatitis complication: unspecified Chronicity: acute Pancreatitis type: unspecified pancreatitis type Qualified Code(s): K85.90 - Acute pancreatitis without necrosis or infection, unspecified
--- NOTE | 2019-01-26 11:37 | Hospitalist Progress Note ---
Date of Service January 26, 2019 Assessment & Plan (1) Acute kidney injury: Admitted back pain with radiation to groins for the last 4 days Noted to have INDY on admission secondary to obstructive uropathy Nephrology has been consulted and appreciate their input and recommendation Has been getting intravenous fluid Creatinine is down to 10.2 from 13 and electrolytes are unremarkable We will continue current fluid intravenously and advised to drink more water Creatinine is down to 6.0 and potassium is 3.1 His bicarb level is going high and CO2 is 36 today We will discontinue bicarb drip Clinically stable and not better Creatinine is improved to below 4 today Discussed with the senior accounts payable clerk and that urologist He will be discharged this afternoon (2) Obstructive uropathy: Bilateral kidney stones and ureteral stones causing obstructive uropathy Appreciate urology input and recommendation Status post bilateral ureteric stent placement, POD #3 Kidney function has been improving We will have outpatient appointment with the urologist (3) Bilateral kidney stones: Has bilateral kidney stones and bilateral pediatric stone Presented with obstructive uropathy Status post stent placement in both ureters on 01/22 Has been passing urine normally Advised to drink more water (4) Hyperkalemia: Secondary to acute kidney injury Has been getting bicarbonate drip We will monitor electrolytes and renal function We will add oral magnesium- Now has hypokalemia due to diuretic phase of acute renal failure We will monitor electrolytes and supplement accordingly Will need potassium supplement on discharge and advised to have more potassium containing food (5) Pancreatitis: Denies any significant abdominal pain IV fluid and pain medications Diet started Obstructive sleep apnea Continue with CPAP as an outpatient DVT prophylaxis SCDs and will change to heparin from today CODE STATUS Full Discussed with the daughter and the Will be discharged this afternoon Subjective 01/23 Patient was seen and examined in telemetry unit He is a 63-year-old morbidly obese male with significant past medical history of type 2 diabetes, sleep apnea on CPAP, hyperlipidemia and tobacco use disorder was admitted yesterday with back pain for about 4 days duration and noted to have bilateral pediatric and kidney stones with obstructive uropathy Is a status post bilateral ureteral stent placement by urologist Denies any pain and passing urine normally 01/24 Patient is seen and examined in telemetry unit He has been lying in bed comfortably without any symptoms Denies any more pain and passing lots of urine 01/26 The patient was seen and examined in telemetry unit He has been feeling a lot better and denies any pain at the back Denies any nausea no vomiting He has been ambulating well without any difficulty Review of Systems Review of Systems: All systems reviewed and are unremarkable except as noted below Musculoskeletal: Denies any back pain Physical Exam Physical Exam: Sitting on the bed without any symptoms Constitutional: well developed, well nourished and + morbidly obese; no acute distress and not ill appearing Eyes: PERRL, conjunctivae normal, anicteric sclerae ENMT: external ear and nose normal, oropharynx normal Neck: trachea midline, no thyromegaly Respiratory: normal respiratory effort Auscultation: lungs clear to auscultation bilaterally and + diminished lung sounds Cardiovascular: Rate/Rhythm: regular rate and regular rhythm Heart Sounds: no murmur Gastrointestinal (Abdomen): Inspection/Auscultation: abdomen normal to inspection and + abdomen distended Percussion/Palpation: abdomen soft; abdomen nontender No tenderness in renal angles Neurologic: PERRL, EOMI, accommodation nl, no face palsy, no dysarthria Psychiatric: A+Ox3, euthymic affect Lymphatic: no cervical or axillary lymphadenopathy Results & Data Vital Signs (Past 12 Hours) Vital Signs Temp Pulse Pulse Resp BP Pulse Ox 01/26/19 08:00 60 01/26/19 07:51 37.1 C 68 17 108/62 93 01/26/19 04:25 37.4 C 67 18 117/67 94 Laboratory Results Short CBC 01/26/19 Range/Units 07:26 WBC 12.54 H (4.8-10.8) K/uL Hgb 9.7 L (14.0-18.0) g/dL Hct 28.6 L (42-52) % Plt Count 373 (130-400) K/uL BMP 01/26/19 07:26 Sodium 139 Potassium 3.3 L Chloride 100 Carbon Dioxide 30 BUN 35 H Creatinine 3.65 H D Glucose 119 H Calcium 7.2 L Medications Administered Current Inpatient Medications Acetaminophen (Tylenol) 650 mg PO Q4H PRN PRN Reason: Pain or Fever Stop: 02/22/19 01:13 Dextrose (Dextrose 50%) 25 - 50 ml IV UD PRN; Protocol PRN Reason: Hypoglycemia Protocol Stop: 02/22/19 01:29 Glucagon (Glucagen) 1 mg SQ UD PRN; Protocol PRN Reason: Hypoglycemia Protocol Stop: 02/22/19 01:29 Glucose (Glucose 40%) 15 - 30 gm PO UD PRN; Protocol PRN Reason: Hypoglycemia Protocol Stop: 02/22/19 01:29 Glucose (Dex4 Glucose) 4 - 8 tabs PO UD PRN; Protocol PRN Reason: Hypoglycemia Protocol Stop: 02/22/19 01:29 Ceftriaxone Sodium 2,000 mg/ (Dextrose) 70 mls @ 140 mls/hr IV Q24H [facility]ACE Stop: 02/02/19 06:59 Last Infusion: 01/26/19 09:11 Dose: Infused Documented by: Insulin Aspart (Novolog Flexpen) 0 units SC ACHS KANDACE Stop: 02/22/19 07:29 Last Admin: 01/26/19 08:25 Dose: Not Given Documented by: Magnesium Oxide (Mag-Ox) 400 mg PO BID [facility] Stop: 02/23/19 20:59 Last Admin: 01/26/19 08:25 Dose: 400 mg Documented by: Metoprolol Tartrate (Lopressor) 25 mg PO BID [facility] Stop: 02/22/19 08:59 Last Admin: 01/26/19 08:25 Dose: 25 mg Documented by: Miscellaneous (Carbohydrates For Hypoglycemia) 15 - 30 gm PO UD PRN PRN Reason: Hypoglycemia Treatment Stop: 02/22/19 01:29 Nitroglycerin (Nitrostat) 0.4 mg SL UD PRN PRN Reason: Chest Pain Stop: 02/22/19 01:13 Ondansetron HCl (Zofran) 4 mg IV Q6H PRN PRN Reason: Nausea Stop: 02/22/19 01:13 (1) Pancreatitis Acute pancreatitis complication: unspecified Chronicity: acute Pancreatitis type: unspecified pancreatitis type Qualified Code(s): K85.90 - Acute pancreatitis without necrosis or infection, unspecified
[2019-01-26] MEDS ORDERED: AMLODIPINE BESYLATE 5 MG TAB PO ONE (12:00)
--- NOTE | 2019-01-27 08:00 | Discharge Summary ---
Date of Service January 27, 2019 Admission HPI Per Admitting Provider DICTATED BY: Nadeem Gutierrez MD DATE OF ADMISSION: 01/22/2019 CHIEF COMPLAINT: Back pain, unable to void. HISTORY OF PRESENT ILLNESS: This is a 63-year-old male with past medical history significant for type 2 diabetes, hyperlipidemia, testicular hypofunction, obstructive sleep apnea, on continuous positive airway pressure, morbid obesity and tobacco use disorder who presents with back pain and unable to void. The patient states since last 4 days he is having back pain and he has taken ibuprofen a couple of times a day for his back pain. In the last 3 days, he is unable to void. He reported today to his and he was brought in to the Emergency Room and was found to have a creatinine of 13 and potassium of 5.6 and anion gap metabolic acidosis and CAT scan showing bilateral obstructing kidney stones. Urology was notified by Emergency Room and the patient is going to the Operating Room now. The patient denies any headache. No blurred vision. No sore throat. No difficulty swallowing. Appetite is okay. Ambulating okay. Denies any chest pain. No shortness of breath. No cough. No fever. No chills. He is feeling nauseous, but no vomiting. He has some abdominal discomfort from being not able to void and also having some back pain. Denies any recent hematuria or burning micturition. No blood in the stools or black stools. He has some swelling in the legs, but says that is chronic. No rash seen. Currently, he is resting comfortably and hemodynamically stable. Admission Exam Per Admitting Provider GENERAL: The patient is morbidly obese, not in acute distress. VITAL SIGNS: Temperature 36.8, pulse 74, respiratory rate 24, blood pressure 169/75 and oxygen 98% on room air. HEENT: No pallor. No icterus. Pupils are equal, round and reactive to light. NECK: No JVD. No neck masses. No carotid bruits. CARDIOVASCULAR: S1, S2 heard. Regular rate and rhythm. No murmur. No gallop. RESPIRATORY SYSTEM: Normal AP diameter. No accessory muscle use. No wheezing. No crackles. ABDOMEN: Soft. Bowel sounds present. Nontender. No distention. CENTRAL NERVOUS SYSTEM: Cranial nerves II through XII are grossly intact. Nonfocal. EXTREMITIES: Pedal edema present. No erythema seen. Principal Diagnosis Obstructive uropathy status post bilateral ureteric stent placement, INDY- improving to normality. Bilateral kidney stones Discharge Exam Constitutional well developed, well nourished and + morbidly obese; no acute distress and not ill appearing Eyes PERRL, conjunctivae normal, anicteric sclerae ENMT external ear and nose normal, oropharynx normal Neck trachea midline, no thyromegaly Respiratory normal respiratory effort Auscultation: lungs clear to auscultation bilaterally and + diminished lung sounds Cardiovascular Rate/Rhythm: regular rate and regular rhythm Heart Sounds: no murmur Gastrointestinal (Abdomen) Inspection/Auscultation: abdomen normal to inspection and + abdomen distended Percussion/Palpation: abdomen soft; abdomen nontender Neurologic PERRL, EOMI, accommodation nl, no face palsy, no dysarthria Psychiatric A+Ox3, euthymic affect Lymphatic no cervical or axillary lymphadenopathy Discharge Data Allergies Allergy/AdvReac Type Severity Reaction Status Date / Time No Known Allergies Allergy Unverified 01/22/19 21:58 Consultations 01/22/19 22:40 ED Decision to Admit Stat 01/23/19 01:14 Consult Case Management - Discharge Planning Routine Consult Urology Routine 01/23/19 08:00 Consult Nephrology Routine Procedures Performed Operation Date: 01/22/19 23:00 Actual Procedures p Cystoscopy and Bilateral Ureteral Stent Insertion(Bilateral) - Branden Blum MD Ordered Studies 01/22/19 21:35 CT abd pelvis wo con Stat 01/22/19 23:08 FL retrograde includes kub Routine Hospital Course (1) Acute kidney injury: Admitted back pain with radiation to groins for the last 4 days Noted to have INDY on admission secondary to obstructive uropathy Nephrology has been consulted and appreciate their input and recommendation Has been getting intravenous fluid Creatinine is down to 10.2 from 13 and electrolytes are unremarkable We will continue current fluid intravenously and advised to drink more water Creatinine is down to 6.0 and potassium is 3.1 His bicarb level is going high and CO2 is 36 today We will discontinue bicarb drip Clinically stable and not better Creatinine is improved to below 4 today Discussed with the coding specialist home health and that urologist He will be discharged this afternoon (2) Obstructive uropathy: Bilateral kidney stones and ureteral stones causing obstructive uropathy Appreciate urology input and recommendation Status post bilateral ureteric stent placement, POD #3 Kidney function has been improving We will have outpatient appointment with the urologist (3) Bilateral kidney stones: Has bilateral kidney stones and bilateral pediatric stone Presented with obstructive uropathy Status post stent placement in both ureters on 01/22 Has been passing urine normally Advised to drink more water (4) Hyperkalemia: Secondary to acute kidney injury Has been getting bicarbonate drip We will monitor electrolytes and renal function We will add oral magnesium- Now has hypokalemia due to diuretic phase of acute renal failure We will monitor electrolytes and supplement accordingly Will need potassium supplement on discharge and advised to have more potassium containing food (5) Pancreatitis: Denies any significant abdominal pain IV fluid and pain medications Diet started Obstructive sleep apnea Continue with CPAP as an outpatient DVT prophylaxis SCDs and will change to heparin from today CODE STATUS Full Discussed with the daughter and the Will be discharged this afternoon Total Time Total Time Spent Total Time Spent (In Minutes): 35 minutes Total Time Includes: Examination of the Patient, Discharge Planning, Medication Reconciliation and Communication With Other Providers Discharge Plan Discharge Items Patient Disposition: Home - Self-Care Reason For Visit: UNABLE TO VOID, BACK PAIN Discharge Diagnosis: Obstructive uropathy status post bilateral ureteric stent placement, INDY-improving to normality. Bilateral kidney stones Condition: Good Discharge Goals: Decrease discomfort Activity: Resume your previous activity Non-emergency contact: Primary Care Provider Call non-emergency contact if: you have any medication questions and your symptoms worsen Follow-up/Referrals: Branden Blum MD [Physician] - (Doctor's office will call with an appointment in about [address] scan of the abdomen) Gregoria Robertson DO [Primary Care Provider] - 01/30/19 12:45 pm (Your appointment is with Dr. Urias, please check BMP and electrolytes and send to Dr. Rubio/Nephrology ) Beto Rubio MD [Physician] - 02/10/19 11:20 am (Your appointment is going to be with Dr. Emmanuel) Diet: Carb Consistent or DM2 and Heart Healthy Diet Comment: Try to drink more fluid Addtl Provider Instructions: Try to drink more fluids and take potassium containing fruits like bananas, 1 or 2 a day Your Metformin is on hold but can be that when kidney function is normalized Your hydrochlorothiazide and lisinopril is on hold and can be restarted when kidney function is normalized Amlodipine 5 mg was prescribed to control blood pressure but can be discontinued when lisinopril/HCTZ is started Prescriptions: New magnesium oxide 400 mg (241.3 mg magnesium) Tablet 400 mg PO BID 30 Days Qty: 60 RF: 0 potassium chloride 20 mEq tablet extended release 20 meq PO DAILY Qty: 30 RF: 0 amlodipine 5 mg tablet 5 mg PO DAILY Qty: 30 RF: 0 Continued atorvastatin 40 mg tablet 40 mg PO HS RF: 0 aspirin 81 mg Tablet,Chewable 81 mg PO QAM RF: 0 metoprolol tartrate 25 mg tablet 25 mg PO BID RF: 0 Discontinued metformin 1,000 mg tablet 1,000 mg PO BIDM RF: 0 lisinopril-hydrochlorothiazide 20-25 mg tablet 1 tab PO QAM RF: 0 Stand-Alone Forms: [facility]/Other Patient Handouts: Potassium, Diabetes Meal Planning Discharge Orders: Discharge Order (Routine); Ordered 01/26/19 Ordered By: Maria A Wilhelm Admission Data Admit Date/Time: 01/22/19 23:54 Attending Provider: Maria A Wilhelm Admit Provider: Nadeem Gutierrez Primary Care Provider: Gregoria Robertson Other Providers: Nadeem Gutierrez ; Branden Blum ; Beto Rubio Service: Telemetry Other Interventions: Discharge Summary Assessment (RN) Last Done: 01/26/19 13:16 DC Date/Time DO NOT enter until pt leaves facility: 01/26/19 13:43
== END 2019-01-26 13:43 | disposition home or self-care (01) | DRG 693 ==
LOC: ED 21:20 → OR 23:30 → 2S 23:54
DX: Z82.49 Family history of ischemic heart disease and other diseases of the circulatory system; F17.210 Nicotine dependence, cigarettes, uncomplicated; I10 Essential (primary) hypertension; E87.5 Hyperkalemia; N17.9 Acute kidney failure, unspecified; Z80.8 Family history of malignant neoplasm of other organs or systems; Z79.84 Long term (current) use of oral hypoglycemic drugs; Z79.82 Long term (current) use of aspirin; E11.9 Type 2 diabetes mellitus without complications; N13.9 Obstructive and reflux uropathy, unspecified; G47.33 Obstructive sleep apnea (adult) (pediatric); E78.5 Hyperlipidemia, unspecified; N20.2 Calculus of kidney with calculus of ureter; E66.01 Morbid (severe) obesity due to excess calories; K85.90 Acute pancreatitis without necrosis or infection, unspecified; Z68.42 Body mass index [BMI] 45.0-49.9, adult; E87.2 Acidosis